=== PATIENT | female | born 1975 | race Caucasian/White ===

== ENCOUNTER 2016-10-23 17:16 | Emergency (ER) | payer OTHER ==
[~2016-10-23] VITALS: Ht 165.1 cm; Wt 70.4 kg
[~2016-10-23 17:16] MED LIST: ALBUAER19 INH; CHLO1TAB19 PO; CLON1TAB3 PO; GABA1CAP5 PO; LEVO125T72 PO; NICO1KIT TOP; NXM/40 PO; PROM25TA9 PO; ROPI4TAB3 PO; SUMA20SP8 NAE; TRAZ150T64 PO
[2016-10-23 17:28] VITALS: TEMP 36.8; Ht 165.1 cm; Wt 70.4 kg
[2016-10-23] MEDS ORDERED: ROPI2TAB6 PO (18:57)
[2016-10-23] MEDS ORDERED: ZOLP10TA6 PO (18:58)
[2016-10-23] MEDS ORDERED: ONDANSETRON INJ 2 MG/ML 2 ML VIAL IV STA ×2 (19:11→20:57)
[2016-10-23] MEDS ORDERED: KETOROLAC TROMETHAMINE 30 MG/ML VIAL IV STA (19:11)
[2016-10-23] MEDS ORDERED: HYDROmorphone INJ 0.5 MG/0.5 ML SYR IV STA ×2 (19:11→20:57)
[2016-10-23] MEDS ORDERED: SODIUM CHLORIDE 0.9% 1000ML 1,000 ML IV STA (19:11)
[2016-10-23] MEDS ORDERED: AMOXICILLIN 500 MG CAP PO STA (19:11)
--- NOTE | 2016-10-23 19:14 | EMERGENCY ROOM VISIT NOTE ---
History Report prepared by Dave: Lefty Vazquez Under the Supervision of: Dr. Dinesh Garcia M.D. First contact with patient: 19:00 Chief Complaint: ILLNESS Stated Complaint: THROBBING EARS, STIFF NECK, NAUSEA, CANT PEE, MIGR History of Present Illness The patient is a 41 year old female who presents to the Emergency Room with complaints of persistent throbbing left ear pain for the past three weeks. The patient inserted a pin into the left ear in an attempt to relieve some pressure. There was no bleeding or discharge after she inserted the needle into her ear. The patient also complains of a headache, neck stiffness, nausea, and dizziness. The headache feels similar to past migraines. The patient does note that having a stiff neck is not a typical migraine symptom for her. She is also having trouble thinking clearly, which is unusual. The patient typically takes Tylenol PM and Motrin for her headaches. She hasn't followed up with neurology in a few years. The patient denies the possibility of . Her LNMP was at the end of the month. Source of History: patient Onset: three weeks Position: ear (left) Quality: other (throbbing) Timing: other (persistent) Associated Symptoms: + headache, + nausea, + neck pain Review of Systems See HPI for pertinent positives & negatives. A total of 10 systems reviewed and were otherwise negative. Past Medical & Surgical Medical Problems: (1) ACUTE CHOLECYSTITIS (2) ASTHMA, UNSPECIFIED (3) Benign hypertension (4) BIPOLAR DISORDER, UNSPECIFIED (5) Bronchitis (6) Cholecystectomy (7) Gastritis (8) GERD (gastroesophageal reflux disease) (9) Hypertension (10) Kidney stones (11) MIGRAINE UNSPECIFIED W/O INTRACT MGRN W/O STATUS MIGRAINOSUS (12) PERSONAL HISTORY OF URINARY CALCULI (13) Pneumonia Family History Diabetes mellitus FH: cancer FH: gallbladder disease FH: heart disease FH: kidney disease FH: lung disease Hypertension Kidney stone Social History Smoking Status: Current Every Day Smoker Alcohol Use: occasionally Drug Use: other Marital Status: Housing Status: lives with significant other Occupation Status: employed Current/Historical Medications Scheduled Amoxicillin (Amoxil), 500 MG PO TID Chlorpromazine Hcl (Thorazine), 25 MG PO HS Clonazepam (Klonopin), 2 MG PO HS Gabapentin (Neurontin), 800 MG PO QID Ranitidine Hcl (Zantac), 300 MG PO HS Ropinirole (Requip), 4 MG PO HS Trazodone Hcl (Desyrel), 300 MG PO HS Scheduled PRN Albuterol Inhaler (Ventolin Inhaler), 2 PUFFS INH QID PRN for SOB/Wheezing Promethazine Hcl (Phenergan), 25 MG PO Q6H PRN for Nausea or Vomiting Ropinirole (Requip), 2 MG PO DAILY PRN for PRN Sumatriptan (Imitrex), 1 SPRAY MIAH UD PRN for Headache Sumatriptan Succinate (Imitrex), 100 MG PO DAILY PRN for Headache Zolpidem Tartrate (Zolpidem Tartrate), 10 MG PO HS PRN for Sleep Allergies Coded Allergies: Metoclopramide (Unverified Allergy, Severe, suicidal thoughts, 10/23/16) Asenapine (Verified Allergy, Intermediate, FACIAL SWELLING, 10/23/16) Molds and Smuts (Verified Allergy, Mild, 10/23/16) Risperidone (Verified Adverse Reaction, Mild, FELT LIKE A ZOMBIE, 10/23/16) Diphenhydramine (Verified Adverse Reaction, Unknown, extremities "bounce" , 10/23/16) Uncoded Allergies: MOST ANTI-PSYCHOTIC MEDICATIONS (Adverse Reaction, Unknown, OTHER, 04/30/14) PATIENT STATES SHE CAN'T TAKE MOST BECAUSE SHE CAN'T BE IN THE SUN WITH THE MEDICATIONS AND SHE WORKS OUTSIDE. Physical Exam Vital Signs Date Time Temp Pulse Resp B/P Pulse Ox O2 Delivery O2 Flow Rate FiO2 10/23/16 21:03 62 10/23/16 21:01 68 20 109/61 94 Room Air 10/23/16 19:36 79 20 130/87 95 Room Air 10/23/16 17:28 36.8 116 18 139/85 97 Room Air Physical Exam GENERAL: Patient is a healthy-appearing well-nourished HEAD: Normocephalic atraumatic EYES: Ocular movements intact pupils equal and react to light EARS: Left TM is intact with no signs of puncture, there is a small abrasion on the inside of her ear canal, TM itself is injected. OROPHARYNX mucous membranes are moist no exudates present no erythema or edema present NECK: Supple no nuchal rigidity. No evidence of meningitis or encephalitis on exam. CHEST: Good equal expansion LUNGS: Clear and equal to auscultation CARDIAC: Normal S1 and S2 ABDOMEN: Soft nontender no guarding BACK: No CVA tenderness EXTREMITIES: No pain upon palpation normal muscle strength in all groups no clubbing cyanosis or edema NEURO: Patient is following commands is answering questions appropriately. Alert and oriented x3 Cranial Nerves 2-12 grossly intact Medical Decision & Procedures ER Provider Diagnostic Interpretation: X-ray results as stated below per my interpretation and radiologist interpretation. Other radiology results as stated below per my review and radiologist interpretation: CHEST ONE VIEW PORTABLE CLINICAL HISTORY: Headache COMPARISON STUDY: 02/09/2016 FINDINGS: The cardiac and mediastinal contours are normal. There is no evidence of focal pulmonary consolidation. There is no evidence of failure. No pleural effusions are visualized.[ IMPRESSION: No active disease in the chest. Electronically signed by: Onur Alicea M.D. 10/23/2016 7:38 PM Dictated Date/Time: 10/23/2016 7:[address] HEAD WITHOUT CONTRAST (CT) CLINICAL HISTORY: Severe headache COMPARISON STUDY: 03/04/2015 TECHNIQUE: Axial CT of the brain is performed from the vertex to the skull base. IV contrast was not administered for this examination. CT DOSE: 537.48 mGy.cm FINDINGS: No intra or extra-axial mass lesions are visualized. There is no CT evidence of acute cortical infarction. There is no evidence of midline shift. There is no acute hemorrhage. No calvarial fractures are visualized. There is no evidence of pathologic ventricular dilatation. There is no evidence of acute sinusitis IMPRESSION: Normal noncontrast head CT. Electronically signed by: Onur Alicea M.D. 10/23/2016 8:04 PM Dictated Date/Time: 10/23/2016 8:03 PM Laboratory Results 10/23/16 19:05 Red Blood Count 4.53, Mean Corpuscular Volume 83.0, Mean Corpuscular Hemoglobin 28.7, Mean Corpuscular Hemoglobin Concent 34.6, Mean Platelet Volume 9.0, Neutrophils (%) (Auto) 50.5, Lymphocytes (%) (Auto) 40.5, Monocytes (%) (Auto) 5.5, Eosinophils (%) (Auto) 2.9, Basophils (%) (Auto) 0.4, Neutrophils # (Auto) 4.48, Lymphocytes # (Auto) 3.60, Monocytes # (Auto) 0.49, Eosinophils # (Auto) 0.26, Basophils # (Auto) 0.04 10/23/16 19:05 Test 10/23/16 19:05 10/23/16 19:35 White Blood Count 8.89 K/uL (4.8-10.8) Red Blood Count 4.53 M/uL (4.2-5.4) Hemoglobin 13.0 g/dL (12.0-16.0) Hematocrit 37.6 % (37-47) Mean Corpuscular Volume 83.0 fL (80-100) Mean Corpuscular Hemoglobin 28.7 pg (25-34) Mean Corpuscular Hemoglobin Concent 34.6 g/dl (32-36) Platelet Count 278 K/uL (130-400) Mean Platelet Volume 9.0 fL (7.4-10.4) Neutrophils (%) (Auto) 50.5 % Lymphocytes (%) (Auto) 40.5 % Monocytes (%) (Auto) 5.5 % Eosinophils (%) (Auto) 2.9 % Basophils (%) (Auto) 0.4 % Neutrophils # (Auto) 4.48 K/uL (1.4-6.5) Lymphocytes # (Auto) 3.60 K/uL (1.2-3.4) Monocytes # (Auto) 0.49 K/uL (0.11-0.59) Eosinophils # (Auto) 0.26 K/uL (0-0.5) Basophils # (Auto) 0.04 K/uL (0-0.2) RDW Standard Deviation 43.8 fL (36.4-46.3) RDW Coefficient of Variation 14.5 % (11.5-14.5) Immature Granulocyte % (Auto) 0.2 % Immature Granulocyte # (Auto) 0.02 K/uL (0.00-0.02) Anion Gap 10.0 mmol/L (3-11) Est Creatinine Clear Calc Drug Dose 87.8 ml/min Estimated GFR () 101.5 Estimated GFR (Non- 87.6 BUN/Creatinine Ratio 15.1 (10-20) Calcium Level 8.4 mg/dl (8.5-10.1) Total Bilirubin 0.2 mg/dl (0.2-1) Direct Bilirubin < 0.1 mg/dl (0-0.2) Aspartate Amino Transf (AST/SGOT) 15 U/L (15-37) Alanine Aminotransferase (ALT/SGPT) 23 U/L (12-78) Alkaline Phosphatase 73 U/L (45-117) Total Protein 6.7 gm/dl (6.4-8.2) Albumin 3.5 gm/dl (3.4-5.0) Lipase 152 U/L (73-393) Influenza Type A Antigen Neg for Influ A (NEG) Influenza Type B Antigen Neg for Influ B (NEG) Labs reviewed by ED physician. Medications Administered Medications (Trade) Dose Ordered Sig/Karina Route Start Time Stop Time Status Last Admin Dose Admin Sodium Chloride (Nss 1000ml) 1,000 ml @ 999 mls/hr Q1H1M STAT IV 10/23/16 19:11 10/23/16 20:11 DC 10/23/16 19:29 999 MLS/HR Ketorolac Tromethamine (Toradol Inj) 30 mg NOW STAT IV 10/23/16 19:11 10/23/16 19:15 DC 10/23/16 19:30 30 MG Amoxicillin (Amoxil Cap) 500 mg NOW STAT PO 10/23/16 19:11 10/23/16 19:15 DC 10/23/16 19:30 500 MG Ondansetron HCl (Zofran Inj) 4 mg NOW STAT IV 10/23/16 19:11 10/23/16 19:15 DC 10/23/16 19:30 4 MG Hydromorphone HCl (Dilaudid Inj) 1 mg NOW STAT IV 10/23/16 19:11 10/23/16 19:15 DC 10/23/16 19:11 1 MG Hydromorphone HCl (Dilaudid Inj) 0.5 mg NOW STAT IV 10/23/16 20:57 10/23/16 20:59 DC 10/23/16 21:07 0.5 MG Dexamethasone Sodium Phosphate (Decadron Inj) 10 mg NOW ONCE IV 10/23/16 21:00 10/23/16 21:01 DC 10/23/16 21:07 10 MG Ondansetron HCl (Zofran Inj) 4 mg NOW STAT IV 10/23/16 20:57 10/23/16 20:59 DC 10/23/16 21:07 4 MG ED Course 1902: Past medical records reviewed. The patient was evaluated in room B2. A complete history and physical examination was performed. 1910: Dilaudid 1 mg IV, Zofran 4 mg Iv, Amoxicillin 500 mg PO, Toradol 30 mg IV , Sodium Chloride 1000 ml @ 999 mls/hr. 2056: Zofran 4 mg IV, Dilaudid 0.5 mg IV. 2099: Decadron 10 mg IV. 2104: Reassessed the patient. Discussed the findings with her. She verbalized understanding and agreement of the treatment plan. The patient is ready for discharge. Medical Decision Differential diagnosis: Etiologies such as migraine headache, meningitis, sinusitis, CO exposure, ICH, SAH, infection, tumor, headache, sinus thrombosis, arterial dissection, as well as others were entertained. the current condition. This is a 41-year-old female who presents emergency department complaining of a headache. The patient has no evidence of meningitis or encephalitis on examination. An IV was established, patient given normal saline bolus, Dilaudid , Zofran. The patient does not have an elevation in her white blood count has a normal renal profile have an normal liver profile. I believe that she is well enough to be discharged home for follow-up with neurology. I also recommended follow-up with your nose and throat as patient has had continuous issues with her left ear. She was placed on amoxicillin for this ear. Patient was in agreement with the treatment plan. Impression Primary Impression: Otitis media Additional Impression: Headache Scribe Attestation The scribe's documentation has been prepared under my direction and personally reviewed by me in its entirety. I confirm that the note above accurately reflects all work, treatment, procedures, and medical decision making performed by me. Departure Information Dispostion Home / Self-Care Prescriptions Amoxicillin (AMOXIL) 500 Mg Cap 500 MG PO TID for 10 Days, #30 CAP Prov: Dinesh Garcia MD 10/23/16 Referrals Anthony Light M.D. (PCP) Forms HOME CARE DOCUMENTATION FORM, IMPORTANT VISIT INFORMATION, WORK / SCHOOL INSTRUCTIONS Patient Instructions ED Otitis Media Abx Tx, My [facility] Additional Instructions Follow up with Dr Tapia's office for ear problem Follow up with DR Anderson's office for continued headaches You have been examined and treated today on an emergency basis only. This is not a substitute for, or an effort to provide, complete comprehensive medical care. It is impossible to recognize and treat all injuries or illnesses in a single emergency department visit. It is therefore important that you follow up closely with Dr Light. Call as soon as possible for an appointment. Thank you for your time and consideration. I look forward to speaking with you again soon. Please don't hesitate to call us if you have any questions. Problem Qualifiers Primary Impression: Otitis media Otitis media type: unspecified nonsuppurative Laterality: left Qualified Codes: H65.92 - Unspecified nonsuppurative otitis media, left ear Additional Impression: Headache Headache type: unspecified Headache chronicity pattern: acute headache Intractability: not intractable Qualified Codes: R51 - Headache
[2016-10-23 19:20] LABS: BASO % 0.4 %; BASO ABS # 0.04 K/uL (0-0.2); COMPLETE YES; EOS % 2.9 %; HEMATOCRIT 37.6 % (37-47); IG% 0.2 %; LYMPH % 40.5 %; MEAN CORPUSCULAR HEMOGLOBIN 28.7 pg (25-34); MEAN CORPUSCULAR HGB CONC 34.6 g/dl (32-36); MONO % 5.5 %; NEUT % 50.5 %; PLATELET COUNT 278 K/uL (130-400); RED BLOOD COUNT 4.53 M/uL (4.2-5.4); WHITE BLOOD COUNT 8.89 K/uL (4.8-10.8)
[2016-10-23] MEDS ORDERED: HYDROmorphone INJ 1 MG/ML SYR ONE (19:20)
[2016-10-23] MEDS ORDERED: AMOXICILLIN 250 MG CAP PO ONE (19:21)
--- NOTE | 2016-10-23 19:39 | DIAGNOSTIC IMAGING REPORT ---
CHEST ONE VIEW PORTABLE CLINICAL HISTORY: Headache COMPARISON STUDY: 02/09/2016 FINDINGS: The cardiac and mediastinal contours are normal. There is no evidence of focal pulmonary consolidation. There is no evidence of failure. No pleural effusions are visualized.[ IMPRESSION: No active disease in the chest. Electronically signed by: Onur Alicea M.D. 10/23/2016 7:38 PM Dictated Date/Time: 10/23/2016 7:38 PM
[2016-10-23 19:45] LABS: ALT/SGPT 23 U/L (12-78); BLOOD UREA NITROGEN 13 mg/dl (7-18); BUN/CREATININE RATIO 15.1 (10-20); CALCIUM 8.4 mg/dl (8.5-10.1); CARBON DIOXIDE 23 mmol/L (21-32); CHLORIDE 109 mmol/L (98-107); CREATININE 0.83 mg/dl (0.60-1.20); GLUCOSE 111 mg/dl (70-99); POTASSIUM 3.5 mmol/L (3.5-5.1); SODIUM 142 mmol/L (136-145)
[2016-10-23 19:48] LABS: ALKALINE PHOSPHATASE 73 U/L (45-117); AST/SGOT 15 U/L (15-37)
--- NOTE | 2016-10-23 20:05 | DIAGNOSTIC IMAGING REPORT ---
CT HEAD WITHOUT CONTRAST (CT) CLINICAL HISTORY: Severe headache COMPARISON STUDY: 03/04/2015 TECHNIQUE: Axial CT of the brain is performed from the vertex to the skull base. IV contrast was not administered for this examination. CT DOSE: 537.48 mGy.cm FINDINGS: No intra or extra-axial mass lesions are visualized. There is no CT evidence of acute cortical infarction. There is no evidence of midline shift. There is no acute hemorrhage. No calvarial fractures are visualized. There is no evidence of pathologic ventricular dilatation. There is no evidence of acute sinusitis IMPRESSION: Normal noncontrast head CT. Electronically signed by: Onur Alicea M.D. 10/23/2016 8:04 PM Dictated Date/Time: 10/23/2016 8:03 PM
[2016-10-23] MEDS ORDERED: DEXAMETHASONE SOD INJ 10 MG/ML VIAL IV ONE (21:00)
[2016-10-23 21:01] VITALS: BP 109/61; O2SAT 94
[2016-10-23 21:03] VITALS: PULSE 62
[2016-10-23] MEDS ORDERED: AMOX500C3 PO (21:03)
[2017-03-21] MEDS ORDERED: MELA1CAP9 PO (09:33)
[2017-03-21] MEDS ORDERED: DSY/150 PO (09:36)
[2017-03-21] MEDS ORDERED: VNTHFA/IN INH (09:36)
[2017-03-21] MEDS ORDERED: RANI300T2 PO (11:50)
== END 2016-10-23 21:24 | disposition home or self-care (01) ==
LOC: C.EDB 17:18
DX: H65.92 Unspecified nonsuppurative otitis media, left ear (principal); R51 Headache; J45.909 Unspecified asthma, uncomplicated; I10 Essential (primary) hypertension; F31.9 Bipolar disorder, unspecified; K21.9 Gastro-esophageal reflux disease without esophagitis; K29.70 Gastritis, unspecified, without bleeding; Z87.442 Personal history of urinary calculi; F17.210 Nicotine dependence, cigarettes, uncomplicated; Z79.899 Other long term (current) drug therapy

== ENCOUNTER 2017-02-04 08:33 | Emergency (ER) | payer OTHER ==
[~2017-02-04] VITALS: Ht 162.6 cm; Wt 80.6 kg
[~2017-02-04 08:33] MED LIST changes: -LEVO125T72 PO; -NICO1KIT TOP; -NXM/40 PO; +ROPI2TAB6 PO; +ZOLP10TA6 PO
[2017-02-04 08:38] VITALS: TEMP 36.9; Ht 162.6 cm; Wt 80.6 kg
[2017-02-04] MEDS ORDERED: ACETAMINOPHEN 500 MG TAB PO STA (09:03)
[2017-02-04] MEDS ORDERED: IBUPROFEN 600 MG TAB PO STA (09:03)
[2017-02-04] MEDS ORDERED: ONDANSETRON 4MG OD TAB PO STA (09:03)
[2017-02-04] MEDS ORDERED: BSP15 PO (09:33)
[2017-02-04 09:49] LABS: HEMATOCRIT 38.8 % (37-47); MEAN CELL VOLUME 86.6 fL (80-100); MEAN CORPUSCULAR HEMOGLOBIN 28.3 pg (25-34); MEAN CORPUSCULAR HGB CONC 32.7 g/dl (32-36); MEAN PLATELET VOLUME 9.1 fL (7.4-10.4); PLATELET COUNT 255 K/uL (130-400); RED BLOOD COUNT 4.48 M/uL (4.2-5.4); WHITE BLOOD COUNT 6.96 K/uL (4.8-10.8)
[2017-02-04 10:11] LABS: BUN/CREATININE RATIO 12.4 (10-20); CREATININE 0.8 mg/dl (0.60-1.20); POTASSIUM 3.7 mmol/L (3.5-5.1)
[2017-02-04 10:13] LABS: PREG INTERNAL NEGATIVE QC NEG CLEAR BACKGROUND; PREG INTERNAL POSITIVE QC POS CONTROL LINE
[2017-02-04 10:14] LABS: CALCIUM 8.5 mg/dl (8.5-10.1)
[2017-02-04 10:15] LABS: ACETAMINOPHEN < 2 ug/ml (10-30)
[2017-02-04 10:18] LABS: MANUAL MICROSCOPIC REQUIRED? NO; REVIEW REQ? NO; URINE APPEARANCE CLEAR (CLEAR); URINE BILIRUBIN NEG (NEG); URINE COLOR YELLOW; URINE NITRITE NEG (NEG); URINE PH 5.5 (4.5-7.5); URINE SPECIFIC GRAVITY 1.013 (1.000-1.030); UROBILINOGEN NEG (NEG); ZZUR CULT IF INDIC CLEAN CATCH NO
[2017-02-04 10:21] LABS: ALB/GLOB RATIO 1.2 (0.9-2); THYROID STIMULATING HORMONE 3.69 uIu/ml (0.300-4.500)
[2017-02-04 10:54] LABS: BENZODIAZEPINE, URINE NEG (NEG); COCAINE,URINE NEG (NEG); PHENCYCLIDINE, URINE NEG (NEG)
--- NOTE | 2017-02-04 11:35 | EMERGENCY ROOM VISIT NOTE ---
History Report prepared by Dave: Shaniqua Talley Under the Supervision of: Dr. Brayan Li M.D. First contact with patient: 08:56 Chief Complaint: MENTAL HEALTH EVALUATION Stated Complaint: SUICIDAL THOUGHTS,DISASSOCIATION History of Present Illness The patient is a 41 year old female who presents to the Emergency Room with complaints of an episode of depression starting a few months ago. She states she has dissociative identity disorder. She states that she has seen her psychiatrist and her adult protective caseworker. She notes that she came to the ED because [facility] recommended she come here. She reports that she wants to come in for help. She reports that she does have suicidal thoughts, but no true plan. She states anytime she thinks about committing suicide that she can't because of her beliefs. The patient states that she doesn't remember cutting herself on her right hip and abdomen. She states that she is on medicine, but it doesn't seem to help or work anymore. She notes that she has migraines every day now. Her reports that she doesn't sleep well. The patient complains of joint swelling and pain. She notes that she was in the hospital a few years ago for her mental health. Source of History: patient Onset: few monts ago Position: other (global) Quality: other (global) Timing: other (episode) Note: The patient complains of joint swelling, joint pain, and migraines. Review of Systems See HPI for pertinent positives & negatives. A total of 10 systems reviewed and were otherwise negative. Past Medical & Surgical Medical Problems: (1) ACUTE CHOLECYSTITIS (2) ASTHMA, UNSPECIFIED (3) Benign hypertension (4) BIPOLAR DISORDER, UNSPECIFIED (5) Bronchitis (6) Cholecystectomy (7) Gastritis (8) GERD (gastroesophageal reflux disease) (9) Hypertension (10) Kidney stones (11) MIGRAINE UNSPECIFIED W/O INTRACT MGRN W/O STATUS MIGRAINOSUS (12) PERSONAL HISTORY OF URINARY CALCULI (13) Pneumonia Family History Diabetes mellitus FH: cancer FH: gallbladder disease FH: heart disease FH: kidney disease FH: lung disease Hypertension Kidney stone Social History Smoking Status: Current Every Day Smoker Alcohol Use: occasionally Drug Use: other Marital Status: Housing Status: lives with significant other Occupation Status: employed Current/Historical Medications Scheduled Buspirone HCl (Buspirone HCl), 15 MG PO BID Chlorpromazine Hcl (Thorazine), 25 MG PO HS Clonazepam (Klonopin), 2 MG PO HS Gabapentin (Neurontin), 800 MG PO QID Melatonin (Melatonin), 10 MG PO HS Ropinirole (Requip), 4 MG PO HS Trazodone HCl (Trazodone HCl), 300 MG PO HS Scheduled PRN Albuterol Hfa (Ventolin Hfa), 2-4 PUFFS INH QID PRN for SOB/Wheezing Promethazine Hcl (Phenergan), 25 MG PO Q6H PRN for Nausea or Vomiting Ranitidine Hcl (Zantac), 300 MG PO HS PRN for PRN Ropinirole (Requip), 2 MG PO DAILY PRN for PRN Sumatriptan (Imitrex), 1 SPRAY MIAH UD PRN for Headache Sumatriptan Succinate (Imitrex), 100 MG PO DAILY PRN for Headache Zolpidem Tartrate (Zolpidem Tartrate), 10 MG PO HS PRN for Sleep Allergies Coded Allergies: Metoclopramide (Unverified Allergy, Severe, suicidal thoughts, 10/23/16) Asenapine (Verified Allergy, Intermediate, FACIAL SWELLING, 10/23/16) Molds and Smuts (Verified Allergy, Mild, 10/23/16) Risperidone (Verified Adverse Reaction, Mild, FELT LIKE A ZOMBIE, 10/23/16) Diphenhydramine (Verified Adverse Reaction, Unknown, extremities "bounce" , 10/23/16) Uncoded Allergies: MOST ANTI-PSYCHOTIC MEDICATIONS (Adverse Reaction, Unknown, OTHER, 04/30/14) PATIENT STATES SHE CAN'T TAKE MOST BECAUSE SHE CAN'T BE IN THE SUN WITH THE MEDICATIONS AND SHE WORKS OUTSIDE. Physical Exam Vital Signs Date Time Temp Pulse Resp B/P Pulse Ox O2 Delivery O2 Flow Rate FiO2 02/04/17 14:00 84 18 112/63 97 Room Air 02/04/17 12:01 86 16 108/64 95 Room Air 02/04/17 10:39 92 18 124/85 98 Room Air 02/04/17 08:38 36.9 107 17 131/86 95 Room Air Physical Exam GENERAL: Patient is in no acute distress. HEENT: No acute trauma, normocephalic atraumatic, mucous membranes moist, no nasal congestion, no scleral icterus. NECK: No stridor, no adenopathy, no meningismus, trachea is midline. LUNGS: Clear to auscultation bilaterally, no wheeze, no rhonchi, breath sounds equal. HEART: Tachycardic with regular rhythm, no murmurs. ABDOMEN: Soft, nontender, bowel sounds positive, no hernias, no peritonitis. Superficial lacs/abrasions to the right low lateral abdomen--no cellulitis, no suturing required. EXTREMITIES: No cyanosis or edema, full range of motion of all the joints without pain or difficulty, no signs for acute trauma. NEUROLOGIC: Oriented x 3, no acute motor or sensory deficits, no focal weakness. SKIN: No rash, no jaundice, no diaphoresis. PSYCH: flat affect, cooperative, admits to suicidal ideation with no set plan, voluntary Medical Decision & Procedures Laboratory Results 02/04/17 09:25 02/04/17 09:25 Test 02/04/17 00:00 02/04/17 09:25 Urine Color YELLOW Urine Appearance CLEAR (CLEAR) Urine pH 5.5 (4.5-7.5) Urine Specific [place] 1.013 (1.000-1.030) Urine Protein NEG (NEG) Urine Glucose (UA) NEG (NEG) Urine Ketones NEG (NEG) Urine Occult Blood NEG (NEG) Urine Nitrite NEG (NEG) Urine Bilirubin NEG (NEG) Urine Urobilinogen NEG (NEG) Urine Leukocyte Esterase NEG (NEG) Urine Opiates Screen NEG (NEG) Urine Methadone, Qualitative NEG (NEG) Urine Barbiturates NEG (NEG) Urine Phencyclidine (PCP) Level NEG (NEG) Ur Amphetamine/Methamphetamine NEG (NEG) MDMA (Ecstasy) Screen POS (NEG) Urine Benzodiazepines Screen NEG (NEG) Urine Cocaine Metabolite NEG (NEG) Urine Marijuana (THC) NEG (NEG) Red Blood Count 4.48 M/uL (4.2-5.4) Mean Corpuscular Volume 86.6 fL (80-100) Mean Corpuscular Hemoglobin 28.3 pg (25-34) Mean Corpuscular Hemoglobin Concent 32.7 g/dl (32-36) RDW Standard Deviation 44.5 fL (36.4-46.3) RDW Coefficient of Variation 14.0 % (11.5-14.5) Mean Platelet Volume 9.1 fL (7.4-10.4) Anion Gap 6.0 mmol/L (3-11) Est Creatinine Clear Calc Drug Dose 95.1 ml/min Estimated GFR () 106.1 Estimated GFR (Non- 91.6 BUN/Creatinine Ratio 12.4 (10-20) Calcium Level 8.5 mg/dl (8.5-10.1) Total Bilirubin 0.2 mg/dl (0.2-1) Aspartate Amino Transf (AST/SGOT) 16 U/L (15-37) Alanine Aminotransferase (ALT/SGPT) 21 U/L (12-78) Alkaline Phosphatase 61 U/L (45-117) Total Protein 6.5 gm/dl (6.4-8.2) Albumin 3.6 gm/dl (3.4-5.0) Globulin 2.9 gm/dl (2.5-4.0) Albumin/Globulin Ratio 1.2 (0.9-2) Thyroid Stimulating Hormone (TSH) 3.690 uIu/ml (0.300-4.500) Human Chorionic Gonadotropin, Qual NEG (NEG) Salicylates Level 3.0 mg/dl (2.8-20) Acetaminophen Level < 2 ug/ml (10-30) Ethyl Alcohol mg/dL < 3.0 mg/dl (0-3) Laboratory results reviewed by me. Medications Administered Medications (Trade) Dose Ordered Sig/Karina Route Start Time Stop Time Status Last Admin Dose Admin Acetaminophen (Tylenol Tab) 1,000 mg NOW STAT PO 02/04/17 09:03 02/04/17 09:06 DC 02/04/17 09:33 1,000 MG Ibuprofen (Motrin Tab) 600 mg NOW STAT PO 02/04/17 09:03 02/04/17 09:06 DC 02/04/17 09:31 600 MG Ondansetron HCl (Zofran Odt) 4 mg NOW STAT PO 02/04/17 09:03 02/04/17 09:06 DC 02/04/17 09:33 4 MG Nicotine (Nicoderm Cq 21MG Patch) 1 patch NOW STAT EXT 02/04/17 11:51 02/04/17 11:52 DC 02/04/17 12:00 1 PATCH ED Course 0856: The patient was evaluated in room A7. A complete history and physical exam was performed. 0903: Ordered Zofran Odt 4 mg PO, Motrin Tab 600 mg PO, Tylenol Tab 1000 mg PO. 1150: The patient requested a nicotine patch. 1151: Ordered Nicotine 1 patch EXT. 1357: The adult protective caseworker called and informed me that the patient wants to go home now instead since a bed is not available in the facility of her choice. Case management spoke with the , spoke with the patient, and redid the suicide assessment. They decided that she is okay to go home and should return with any worsening thoughts or feelings. 1400: Reevaluated the patient. Discussed results and discharge instructions: She verbalized understanding and agreement. The patient is ready for discharge. Medical Decision Differential diagnoses include suicidal ideation, depression, anxiety, medication non compliance, thyroid disorder, drug and alcohol abuse. There is no leukocytosis or concerning anemia. No significant electrolyte abnormality, kidney failure or hepatitis. The patient appears to be in a euthyroid state. testing is negative. Urinalysis does not show infection. Urine tox showed possible ecstasy. Aspirin, Tylenol and alcohol levels were undetectable. The patient was felt medically clear for a psychiatric evaluation. She was seen by [facility] and our psychiatric dependency case manager. Referrals for a hospital stay were made however, the patient did not meet criteria for an inpatient stay. The patient decided that she wanted to go home. She agreed to a safety plan verbally. She scored very low as per the psychiatric adult protective caseworker on the suicide risk assessment. The patient's was comfortable with discharge home as was her dependency case manager. Patient was encouraged to return for worsening or escalating symptoms. She will follow with her adult protective caseworker and follow with her counselors as an outpatient. Impression Primary Impression: Suicidal ideation Scribe Attestation The scribe's documentation has been prepared under my direction and personally reviewed by me in its entirety. I confirm that the note above accurately reflects all work, treatment, procedures, and medical decision making performed by me. Departure Information Dispostion Home / Self-Care Referrals Anthony Light M.D. (PCP) Forms HOME CARE DOCUMENTATION FORM, IMPORTANT VISIT INFORMATION Patient Instructions My [facility] Additional Instructions meds as before follow as an outpt be sure to talk with your adult protective caseworker tomorrow return if feeling more suicidal or if your symptoms are worsening
[2017-02-04] MEDS ORDERED: NICOTINE 21 MG/24 HR TDSY EXT STA (11:51)
[2017-02-04 14:00] VITALS: BP 112/63; PULSE 84; O2SAT 97
[2017-03-21] MEDS ORDERED: MELA1CAP9 PO (09:33)
[2017-03-21] MEDS ORDERED: DSY/150 PO (09:36)
[2017-03-21] MEDS ORDERED: VNTHFA/IN INH (09:36)
[2017-03-21] MEDS ORDERED: RANI300T2 PO (11:50)
== END 2017-02-04 14:10 | disposition home or self-care (01) ==
LOC: C.EDB 08:35 → C.EDA 14:10
DX: R45.851 Suicidal ideations (principal); F32.9 Major depressive disorder, single episode, unspecified; F44.81 Dissociative identity disorder; I10 Essential (primary) hypertension; J45.909 Unspecified asthma, uncomplicated; K21.9 Gastro-esophageal reflux disease without esophagitis; Z79.899 Other long term (current) drug therapy; Z86.59 Personal history of other mental and behavioral disorders; Z87.09 Personal history of other diseases of the respiratory system; Z87.19 Personal history of other diseases of the digestive system; Z87.442 Personal history of urinary calculi; Z82.49 Family history of ischemic heart disease and other diseases of the circulatory system; Z83.3 Family history of diabetes mellitus; Z83.6 Family history of other diseases of the respiratory system; Z83.79 Family history of other diseases of the digestive system; Z84.1 Family history of disorders of kidney and ureter; F17.200 Nicotine dependence, unspecified, uncomplicated

== ENCOUNTER 2017-03-21 16:59 | Emergency (ER) | payer OTHER ==
[~2017-03-21] VITALS: Ht 165.1 cm; Wt 94.5 kg
[~2017-03-21 16:59] MED LIST changes: -ALBUAER19 INH; +BSP15 PO; +DSY/150 PO; +MELA1CAP9 PO; +RANI300T2 PO; -TRAZ150T64 PO; +VNTHFA/IN INH
[2017-03-21 17:13] VITALS: Ht 165.1 cm; Wt 94.5 kg
[2017-03-21] MEDS ORDERED: IBUPROFEN 600 MG TAB PO STA (17:25)
[2017-03-21] MEDS ORDERED: RQP/2 PO (18:02)
[2017-03-21] MEDS ORDERED: ROPI4TAB4 PO (18:02)
[2017-03-21] MEDS ORDERED: CLON2TAB3 PO (18:02)
[2017-03-21] MEDS ORDERED: ZYP15 PO (18:02)
[2017-03-21] MEDS ORDERED: NRN800 PO (18:02)
[2017-03-21] MEDS ORDERED: EFFSR150 PO (18:02)
[2017-03-21] MEDS ORDERED: PROM25TA16 PO (18:07)
[2017-03-21] MEDS ORDERED: IMT100 PO (18:58)
--- NOTE | 2017-03-21 19:13 | DIAGNOSTIC IMAGING REPORT ---
CT OF THE CERVICAL SPINE WITHOUT CONTRAST CLINICAL HISTORY: Fall, tenderness to palpation and pain of spine COMPARISON STUDY: Cervical spine CT May 12, 2014. TECHNIQUE: Helical axial images of the cervical spine were obtained without IV contrast. Sagittal and coronal reconstructions were viewed. FINDINGS: There is reversal of the normal cervical lordosis. Craniocervical junction is intact. There is no acute fracture. There is no prevertebral edema. Mild multilevel endplate osteophytosis is noted. IMPRESSION: No acute cervical spine fracture or subluxation. Electronically signed by: Ward Perea M.D. 03/21/2017 7:12 PM Dictated Date/Time: 03/21/2017 7:09 PM
[2017-03-21] MEDS ORDERED: OXYCODONE HCL IR 5 MG TAB (IMMEDIATE RELEASE) PO STA (19:42)
--- NOTE | 2017-03-21 19:42 | DIAGNOSTIC IMAGING REPORT ---
RIGHT ANKLE MIN 3 VIEWS ROUTINE CLINICAL HISTORY: Fall, pain from right foot to ankle. COMPARISON: None FINDINGS: There is moderate posterior calcaneal spurring. Irregularity of the medial malleolus is chronic. No acute fracture is identified. IMPRESSION: No acute fracture or dislocation of the right ankle. Electronically signed by: Ward Perea M.D. 03/21/2017 7:41 PM Dictated Date/Time: 03/21/2017 7:40 PM
--- NOTE | 2017-03-21 19:43 | DIAGNOSTIC IMAGING REPORT ---
PELVIS/BILATERAL HIP 2 VIEWS CLINICAL HISTORY: Fall, inferior spinous process pain and hip pain COMPARISON STUDY: Abdominal series February 09, 2016. FINDINGS: No acute fracture is identified within the pelvis or hips. Sacroiliac joints and symphysis pubis are intact. There is mild osteophytosis of both hips. IMPRESSION: No acute fracture within the pelvis or hips. Electronically signed by: Ward Perea M.D. 03/21/2017 7:42 PM Dictated Date/Time: 03/21/2017 7:41 PM
--- NOTE | 2017-03-21 19:44 | DIAGNOSTIC IMAGING REPORT ---
L-SPINE MIN 4 VIEWS ROUTINE CLINICAL HISTORY: Fall, inferior spinous process pain and hip pain COMPARISON: Lumbar spine radiographs June 08, 2011. FINDINGS: Alignment of the lumbar spine is anatomic. There is no acute fracture. Mild multilevel degenerative changes are present. There are cholecystectomy clips. IMPRESSION: No acute lumbar spine fracture. Electronically signed by: Ward Perea M.D. 03/21/2017 7:43 PM Dictated Date/Time: 03/21/2017 7:42 PM
--- NOTE | 2017-03-21 19:46 | DIAGNOSTIC IMAGING REPORT ---
RIGHT FOOT MIN 3 VIEWS ROUTINE CLINICAL HISTORY: Fall, pain from right foot to ankle. COMPARISON: Right fifth toe radiographs February 13, 2011. FINDINGS: The tarsometatarsal joints are intact. There is no acute fracture within the right foot. There is moderate posterior calcaneal spurring. IMPRESSION: No acute fracture or dislocation within the right foot. Electronically signed by: Ward Perea M.D. 03/21/2017 7:45 PM Dictated Date/Time: 03/21/2017 7:43 PM
--- NOTE | 2017-03-21 19:47 | DIAGNOSTIC IMAGING REPORT ---
RIGHT HUMERUS MIN 2 VIEWS ROUTINE CLINICAL HISTORY: Fall, pain from shoulder to hand. COMPARISON: None FINDINGS: No acute fracture of the right humerus is identified. Alignment of the right elbow is anatomic. There is no right elbow joint effusion. IMPRESSION: No acute fracture of the right humerus. Electronically signed by: Ward Perea M.D. 03/21/2017 7:46 PM Dictated Date/Time: 03/21/2017 7:45 PM
--- NOTE | 2017-03-21 19:49 | DIAGNOSTIC IMAGING REPORT ---
RIGHT FOREARM 2 VIEWS ROUTINE CLINICAL HISTORY: Fall, pain from shoulder to hand. COMPARISON: None FINDINGS: No acute fracture within the right radius or ulna is identified. Alignment of the right elbow is anatomic. IMPRESSION: No acute fracture of the right radius or ulna. Electronically signed by: Ward Perea M.D. 03/21/2017 7:47 PM Dictated Date/Time: 03/21/2017 7:46 PM
--- NOTE | 2017-03-21 19:50 | DIAGNOSTIC IMAGING REPORT ---
RIGHT HAND MIN 3 VIEWS ROUTINE CLINICAL HISTORY: Fall, pain from shoulder to hand. COMPARISON: Right hand radiographs March 21, 2015. FINDINGS: No acute fracture within the right hand is identified. Alignment is anatomic. Carpal bones appear intact. IMPRESSION: No acute fracture or dislocation of the right hand. Electronically signed by: Ward Perea M.D. 03/21/2017 7:48 PM Dictated Date/Time: 03/21/2017 7:47 PM
[2017-03-21 20:09] VITALS: TEMP 36.6
--- NOTE | 2017-03-21 20:17 | EMERGENCY ROOM VISIT NOTE ---
History First contact with patient: 17:17 Chief Complaint: ARM PAIN Stated Complaint: RT WRIST TO ELBOW INJURY, PAIN History of Present Illness The patient is a 41 year old female who presents to the Emergency Room via private vehicle with complaints of "right wrist elbow injury, pain". The patient states that this evening around 3 or 4 PM, she was getting out of her bed when her leg caught something, she turned around and fell striking the wall and the floor. She notes pain in the right foot, right ankle, right forearm, right upper extremity, bilateral hips, low back and neck. She rates her overall pain as a 7/10. She denies loss of consciousness, or striking her head. She denies chance of . Review of Systems A complete 10-point Review of Systems was discussed with the patient, with pertinent positives and negatives listed in the History of Present Illness. All remaining Review of Systems questions can be considered negative unless otherwise specified. Past Medical/Surgical History Medical Problems: (1) ACUTE CHOLECYSTITIS (2) ASTHMA, UNSPECIFIED (3) Benign hypertension (4) BIPOLAR DISORDER, UNSPECIFIED (5) Bronchitis (6) Cholecystectomy (7) Gastritis (8) GERD (gastroesophageal reflux disease) (9) Hypertension (10) Kidney stones (11) MIGRAINE UNSPECIFIED W/O INTRACT MGRN W/O STATUS MIGRAINOSUS (12) PERSONAL HISTORY OF URINARY CALCULI (13) Pneumonia Family History Diabetes mellitus FH: cancer FH: gallbladder disease FH: heart disease FH: kidney disease FH: lung disease Hypertension Kidney stone Social History Smoking Status: Current Every Day Smoker Alcohol Use: occasionally Drug Use: other Marital Status: Housing Status: lives with significant other Occupation Status: employed Current/Historical Medications Scheduled Clonazepam (Klonopin), 2 MG PO HS Gabapentin (Gabapentin), 800 MG PO QID Melatonin (Melatonin), 10 MG PO HS Olanzapine (Olanzapine), 15 MG PO HS Ranitidine Hcl (Zantac), 300 MG PO HS Ropinirole Hydrochloride (Requip), 4 MG PO HS Trazodone HCl (Trazodone HCl), 300 MG PO HS Venlafaxine Hcl (Effexor Extended Rel), 150 MG PO DAILY Scheduled PRN Albuterol Hfa (Ventolin Hfa), 2 PUFFS INH QID PRN for SOB/Wheezing Promethazine HCl (Promethazine HCl), 25 MG PO Q6H PRN for Nausea or Vomiting Ropinirole Hydrochloride (Requip), 2 MG PO DAILY PRN for Restless Legs Sumatriptan Succinate (Imitrex), 100 MG PO UD PRN for Migraine Zolpidem Tartrate (Zolpidem Tartrate), 5-10 MG PO HS PRN for Sleep Allergies Coded Allergies: Metoclopramide (Unverified Allergy, Severe, suicidal thoughts, 10/23/16) Asenapine (Verified Allergy, Intermediate, FACIAL SWELLING, 10/23/16) Molds and Smuts (Verified Allergy, Mild, 10/23/16) Risperidone (Verified Adverse Reaction, Mild, FELT LIKE A ZOMBIE, 10/23/16) Diphenhydramine (Verified Adverse Reaction, Unknown, extremities "bounce" , 10/23/16) Uncoded Allergies: MOST ANTI-PSYCHOTIC MEDICATIONS (Adverse Reaction, Unknown, OTHER, 04/30/14) PATIENT STATES SHE CAN'T TAKE MOST BECAUSE SHE CAN'T BE IN THE SUN WITH THE MEDICATIONS AND SHE WORKS OUTSIDE. Physical Exam Vital Signs Date Time Temp Pulse Resp B/P (MAP) Pulse Ox O2 Delivery O2 Flow Rate FiO2 03/21/17 20:27 71 16 130/76 99 03/21/17 20:09 36.6 03/21/17 17:13 37.7 98 18 136/86 95 Room Air Physical Exam VITAL SIGNS - Vital signs and nursing notes were reviewed. The patient is febrile at 37.7, hypertensive, non-tachycardic and saturating well on room air 95%. GENERAL -41-year-old female appearing her stated age who is in no acute distress. Communicates well with provider and answers questions appropriately. SKIN - Without rashes. There are no breaks in the integument. There is slight edema noted to the right forearm. HEAD - NC/AT. No hart signs or raccoons eyes. EYES - PERRL with EOMI bilaterally. Sclera anicteric. Palpebral conjunctiva pink and moist with no injection noted. EARS - No deformities of external structures noted on gross examination bilaterally. No pain elicited with palpation of the tragus bilaterally. External auditory canals without discharge or otorrhea. Tympanic membranes pearly alaniz without retraction or bulging. No fluid or purulent material visualized behind the TM. Handle of malleus, umbo, cone of light, pars tensa/ flaccid all easily visualized. No hemotympanum. NOSE - Midline and without cyanosis. No epistaxis or purulent drainage noted. Septum midline without deviation or septal hematoma noted. MOUTH/OROPHARYNX - Without perioral cyanosis. Buccal mucosa pink and moist and without leukoplakia. Tongue midline with equal elevation of palate bilaterally. No tonsillar hypertrophy, erythema, or exudates noted. Fair dentition noted. NECK - Neck with FROM. Supple to palpation. There is midline C-spine tenderness. LUNGS - Chest wall symmetric without accessory muscle use, intercostals retractions, or central cyanosis. Normal vesicular breath sounds CTA B/L. No wheezes, rales, or rhonchi appreciated. CARDIAC - RRR with S1/S2. No murmur, rubs, or gallops appreciated. EXTREMITIES - No clubbing or peripheral cyanosis. No pretibial edema present. There is tenderness to palpation overlying the right foot, right ankle, right hand, right forearm, right humerus region, C-spine, low back and bilateral hips. +5/5 strength noted in UE/LE bilaterally. NEUROLOGIC - Cranial nerves II through XII grossly intact. Sensory intact to light touch throughout. PSYCH - A&O Pt is very pleasant and interacts well with examiner. Medical Decision & Procedures ER Provider Diagnostic Interpretation: CT OF THE CERVICAL SPINE WITHOUT CONTRAST CLINICAL HISTORY: Fall, tenderness to palpation and pain of spine COMPARISON STUDY: Cervical spine CT May 12, 2014. TECHNIQUE: Helical axial images of the cervical spine were obtained without IV contrast. Sagittal and coronal reconstructions were viewed. FINDINGS: There is reversal of the normal cervical lordosis. Craniocervical junction is intact. There is no acute fracture. There is no prevertebral edema. Mild multilevel endplate osteophytosis is noted. IMPRESSION: No acute cervical spine fracture or subluxation. Electronically signed by: Ward Perea M.D. 03/21/2017 7:12 PM Dictated Date/Time: 03/21/2017 7:09 PM RIGHT ANKLE MIN 3 VIEWS ROUTINE CLINICAL HISTORY: Fall, pain from right foot to ankle. COMPARISON: None FINDINGS: There is moderate posterior calcaneal spurring. Irregularity of the medial malleolus is chronic. No acute fracture is identified. IMPRESSION: No acute fracture or dislocation of the right ankle. Electronically signed by: Ward Perea M.D. 03/21/2017 7:41 PM Dictated Date/Time: 03/21/2017 7:40 PM RIGHT FOOT MIN 3 VIEWS ROUTINE CLINICAL HISTORY: Fall, pain from right foot to ankle. COMPARISON: Right fifth toe radiographs February 13, 2011. FINDINGS: The tarsometatarsal joints are intact. There is no acute fracture within the right foot. There is moderate posterior calcaneal spurring. IMPRESSION: No acute fracture or dislocation within the right foot. Electronically signed by: Ward Perea M.D. 03/21/2017 7:45 PM Dictated Date/Time: 03/21/2017 7:43 PM RIGHT FOREARM 2 VIEWS ROUTINE CLINICAL HISTORY: Fall, pain from shoulder to hand. COMPARISON: None FINDINGS: No acute fracture within the right radius or ulna is identified. Alignment of the right elbow is anatomic. IMPRESSION: No acute fracture of the right radius or ulna. Electronically signed by: Ward Perea M.D. 03/21/2017 7:47 PM Dictated Date/Time: 03/21/2017 7:46 PM RIGHT HAND MIN 3 VIEWS ROUTINE CLINICAL HISTORY: Fall, pain from shoulder to hand. COMPARISON: Right hand radiographs March 21, 2015. FINDINGS: No acute fracture within the right hand is identified. Alignment is anatomic. Carpal bones appear intact. IMPRESSION: No acute fracture or dislocation of the right hand. Electronically signed by: Ward Perea M.D. 03/21/2017 7:48 PM Dictated Date/Time: 03/21/2017 7:47 PM PELVIS/BILATERAL HIP 2 VIEWS CLINICAL HISTORY: Fall, inferior spinous process pain and hip pain COMPARISON STUDY: Abdominal series February 09, 2016. FINDINGS: No acute fracture is identified within the pelvis or hips. Sacroiliac joints and symphysis pubis are intact. There is mild osteophytosis of both hips. IMPRESSION: No acute fracture within the pelvis or hips. Electronically signed by: Ward Perea M.D. 03/21/2017 7:42 PM Dictated Date/Time: 03/21/2017 7:41 PM RIGHT HUMERUS MIN 2 VIEWS ROUTINE CLINICAL HISTORY: Fall, pain from shoulder to hand. COMPARISON: None FINDINGS: No acute fracture of the right humerus is identified. Alignment of the right elbow is anatomic. There is no right elbow joint effusion. IMPRESSION: No acute fracture of the right humerus. Electronically signed by: Ward Perea M.D. 03/21/2017 7:46 PM Dictated Date/Time: 03/21/2017 7:45 PM L-SPINE MIN 4 VIEWS ROUTINE CLINICAL HISTORY: Fall, inferior spinous process pain and hip pain COMPARISON: Lumbar spine radiographs June 08, 2011. FINDINGS: Alignment of the lumbar spine is anatomic. There is no acute fracture. Mild multilevel degenerative changes are present. There are cholecystectomy clips. IMPRESSION: No acute lumbar spine fracture. Electronically signed by: Ward Perea M.D. 03/21/2017 7:43 PM Dictated Date/Time: 03/21/2017 7:42 PM Medications Administered Medications (Trade) Dose Ordered Sig/Karina Route Start Time Stop Time Status Last Admin Dose Admin Ibuprofen (Motrin Tab) 600 mg NOW STAT PO 03/21/17 17:25 03/21/17 17:29 DC 03/21/17 17:34 600 MG Oxycodone HCl (Roxicodone Immediate Rel Tab) 5 mg NOW STAT PO 03/21/17 19:42 03/21/17 19:44 DC 03/21/17 20:01 5 MG Medical Decision Patient was seen and evaluated as above. After obtaining a thorough history and physical examination the decision was made to obtain radiographs of the affected regions. The patient had numerous sites that she was tender to palpation on status post her fall. Results as above. No acute fracture. She was most tender overlying the right wrist therefore will be splinted with a Velcro wrist lacer. She was given oxycodone immediate release for her pain with near complete resolution of her symptoms. Her vital signs are significant for that of being febrile at 37.7, this was repeated and she was found to be afebrile. She is nontoxic in appearance. She requests no pain medication for home. I believe she is stable for outpatient management of which she may follow -up with her family doctor. She was educated upon worrisome symptoms which to return, had questions prior to discharge, and was discharged home in good condition. In evaluation treatment this patient following differential diagnoses were entertained: Fracture of multiple sites, contusion, among others. Impression Primary Impression: Fall Additional Impression: Multiple contusions Departure Information Dispostion Home / Self-Care Condition GOOD Referrals Anthony Light M.D. (PCP) Yusuf Frazier D.O. Patient Instructions [facility] Additional Instructions You have been treated in the Emergency Department for Wrist Pain, neck pain, back pain, arm and ankle pain following your fall. You have received pain medicine in the emergency department which impairs your ability to operate a vehicle. It is illegal for you to drive after receiving these medicines. For pain control, you can use the following [id number] medicines (if >12 yo): - Regular strength (325mg/tab) Tylenol (acetaminophen) 2 tabs every 4-6 hours as needed. Do not exceed 12 tablets in a 24 hour period. Avoid taking more than 3 grams (3000 mg) of Tylenol per day. This includes any other sources of acetaminophen you may take on a regular basis. - Regular strength (200 mg/tab) Advil (ibuprofen) 1-2 tabs every 4-6 hours as needed. Do not exceed a dose of 3200 mg per day. If this is a recent injury (<24 hrs), ice can be applied to the area of pain for the first 3 days to help decrease pain and inflammation. You have been provided the number for an Orthopaedic Surgeon. You should call this number as soon as possible to establish a follow-up visit from today's Emergency Department visit. Keep the brace/splint in place until evaluated by Orthopedics. Return to the Emergency Department if your current symptoms worsen despite treatment course outlined above, or if you develop any of the following symptoms : intractable pain despite aforementioned treatment course or new onset of numbness or tingling of the fingers. Please return to the emergency department with any new/concerning symptoms Problem Qualifiers
[2017-03-21 20:27] VITALS: BP 130/76; PULSE 71; O2SAT 99
--- NOTE | 2017-03-22 01:26 | EMERGENCY ROOM VISIT NOTE ---
ED Visit Note First contact with patient: 17:17 I have personally evaluated and examined this patient. I agree with assessment and plan of Wade Mcbride PA-C.
== END 2017-03-21 20:28 | disposition home or self-care (01) ==
LOC: C.EDB 17:00 → C.EDD 20:28
DX: T14.8 Other injury of unspecified body region (principal); W06.XXXA Fall from bed, initial encounter; Y92.013 Bedroom of single-family (private) house as the place of occurrence of the external cause; J45.909 Unspecified asthma, uncomplicated; I10 Essential (primary) hypertension; F31.9 Bipolar disorder, unspecified; K21.9 Gastro-esophageal reflux disease without esophagitis; Z87.442 Personal history of urinary calculi; G43.909 Migraine, unspecified, not intractable, without status migrainosus; Z87.01 Personal history of pneumonia (recurrent); Z83.3 Family history of diabetes mellitus; Z80.9 Family history of malignant neoplasm, unspecified; Z83.79 Family history of other diseases of the digestive system; Z84.1 Family history of disorders of kidney and ureter; Z83.6 Family history of other diseases of the respiratory system; F17.210 Nicotine dependence, cigarettes, uncomplicated; Z79.899 Other long term (current) drug therapy

== ENCOUNTER 2017-09-13 12:30 | Emergency (ER) | payer OTHER ==
[~2017-09-13] VITALS: Ht 165.1 cm; Wt 104.3 kg
[~2017-09-13 12:30] MED LIST changes: -BSP15 PO; -CHLO1TAB19 PO; -CLON1TAB3 PO; +CLON2TAB9 PO; +EFFSR150 PO; -GABA1CAP5 PO; +IMT100 PO; +NRN800 PO; +PROM25TA16 PO; -PROM25TA9 PO; -ROPI2TAB6 PO; -ROPI4TAB3 PO; +ROPI4TAB4 PO; +RQP/2 PO; -SUMA20SP8 NAE; +ZYP15 PO
[2017-09-13 12:38] VITALS: TEMP 36.6; Ht 165.1 cm; Wt 104.3 kg
[2017-09-13] MEDS ORDERED: HYDR-3126 PO (13:09)
[2017-09-13] MEDS ORDERED: ATR25 PO (13:09)
[2017-09-13] MEDS ORDERED: ZLF/100 PO (13:09)
[2017-09-13] MEDS ORDERED: THR25X PO (13:09)
[2017-09-13] MEDS ORDERED: CHOL4POW4 PO (13:09)
--- NOTE | 2017-09-13 13:43 | DIAGNOSTIC IMAGING REPORT ---
LEFT ANKLE 3 VIEWS HISTORY: left ankle pain/swelling s/p fall COMPARISON: None. FINDINGS: There is no fracture or dislocation. Mild soft tissue swelling. Small posterior and plantar calcaneal spurs. IMPRESSION: No fractures. Electronically signed by: Aniket Anguiano M.D. 09/13/2017 1:41 PM Dictated Date/Time: 09/13/2017 1:41 PM
--- NOTE | 2017-09-13 14:00 | EMERGENCY ROOM VISIT NOTE ---
ED Visit Note First contact with patient: 12:54 CHIEF COMPLAINT: Left Ankle pain and swelling HISTORY OF PRESENT ILLNESS: This 42-year-old female patient presents to the emergency department 2 days after sustaining an injury to the left ankle and foot with a twisting, inversion motion when she fell out of bed. The patient complains of pain and swelling along the outside of the ankle, just posterior to the lateral malleolus. The patient denies any pain of the foot. The patient rates the pain as sharp and 9/10. The patient is able to bear weight on the foot. Constant pain, worse with movement, weight bearing, and the dependent position. No knee pain, the patient is able to move their toes. No numbness or weakness of the foot, no laceration. The patient has not had a previous fracture to this ankle, but states she did have a surgery, but is uncertain why. The patient has taken ibuprofen for the pain, which is helpful. The patient denies any other injury. REVIEW OF SYSTEMS: A 6 system review of systems was completed with positives and pertinent negatives listed in the HPI. ALLERGIES: Benadryl, Reglan, risperidone, asenapine, MEDICATIONS: Albuterol, chlorpromazine, cholestyramine, Klonopin, gabapentin, hydroxyzine, melatonin, olanzapine, promethazine, Zantac, Requip, Zoloft, Imitrex, trazodone, Ambien PMH: Chronic joint problems SOCIAL HISTORY: The patient lives locally with family. She denies drug, alcohol use. She admits to smoking one half pack of cigarettes per day. PHYSICAL EXAM: Vital Signs: Reviewed Nurse's notes, vital signs stable. GENERAL : This is a 42-year-old obese white female, no acute distress, but appears in pain, well-developed, well-nourished. MENTAL STATUS: Alert, oriented to person place and time, and cooperative. MUSCULOSKELETAL: The left ankle is mildly swollen and tender over the lateral malleolus, but the skin is intact and there is no ligamentous instability. There is no fifth metatarsal tenderness. There is no tenderness over the rest of the foot. There is no calf or tibia/fibular tenderness. There is no visual deformity. The foot and toes are warm and well- perfused. Dorsalis pedis pulse 2+. Sensation to pain and light touch is intact. Capillary refill less than 2 seconds. RADIOLOGY: LEFT ANKLE 3 VIEWS HISTORY: left ankle pain/swelling s/p fall COMPARISON: None. FINDINGS: There is no fracture or dislocation. Mild soft tissue swelling. Small posterior and plantar calcaneal spurs. IMPRESSION: No fractures. Electronically signed by: Aniket Anguiano M.D. 09/13/2017 1:41 PM Dictated Date/Time: 09/13/2017 1:41 PM EMERGENCY DEPARTMENT COURSE: I examined the patient. She presents today complaining of left ankle pain and swelling. 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 X-rays of the left ankle were reviewed by myself and read by radiology and reveal no acute fracture or dislocation. An Bentley wrap was applied to the ankle under my direction and the position was satisfactory. Neurovascular status was rechecked and intact. The patient was instructed on the use of crutches. The patient was discharged home in good condition. DIFFERENTIAL DIAGNOSIS: Fracture, dislocation, contusion, sprain, strain, malignancy, and others DIAGNOSIS: Left ankle sprain Problem List Medical Problems: (1) ACUTE CHOLECYSTITIS Status: Resolved (2) ASTHMA, UNSPECIFIED Status: Chronic (3) Benign hypertension Status: Chronic (4) BIPOLAR DISORDER, UNSPECIFIED Status: Chronic (5) Bronchitis Status: Chronic (6) Cholecystectomy Status: Resolved (7) Gastritis Status: Chronic (8) GERD (gastroesophageal reflux disease) Status: Chronic (9) Hypertension Status: Chronic (10) Kidney stones Status: Chronic (11) MIGRAINE UNSPECIFIED W/O INTRACT MGRN W/O STATUS MIGRAINOSUS Status: Chronic (12) PERSONAL HISTORY OF URINARY CALCULI Status: Resolved (13) Pneumonia Status: Chronic Current/Historical Medications Scheduled Chlorpromazine HCl (Chlorpromazine HCl), 1 TAB PO TID Cholestyramine (Cholestyramine), 4 GM PO BID Clonazepam (Klonopin), 2 MG PO HS Gabapentin (Gabapentin), 800 MG PO QID Hydroxyzine Hcl (Atarax), 1 TAB PO HS Melatonin (Melatonin), 10 MG PO HS Olanzapine (Olanzapine), 15 MG PO HS Ranitidine Hcl (Zantac), 300 MG PO HS Ropinirole Hydrochloride (Requip), 4 MG PO HS Sertraline HCl (Sertraline HCl), 2 TAB PO QAM Trazodone HCl (Trazodone HCl), 300 MG PO HS Scheduled PRN Albuterol Hfa (Ventolin Hfa), 2 PUFFS INH QID PRN for SOB/Wheezing Promethazine HCl (Promethazine HCl), 25 MG PO Q6H PRN for Nausea or Vomiting Ropinirole Hydrochloride (Requip), 2 MG PO DAILY PRN for Restless Legs Sumatriptan Succinate (Imitrex), 100 MG PO UD PRN for Migraine Zolpidem Tartrate (Zolpidem Tartrate), 5-10 MG PO HS PRN for Sleep Allergies Coded Allergies: Metoclopramide (Unverified Allergy, Severe, suicidal thoughts, 10/23/16) Asenapine (Verified Allergy, Intermediate, FACIAL SWELLING, 10/23/16) Molds and Smuts (Verified Allergy, Mild, 10/23/16) Risperidone (Verified Adverse Reaction, Mild, FELT LIKE A ZOMBIE, 10/23/16) Diphenhydramine (Verified Adverse Reaction, Unknown, extremities "bounce" , 10/23/16) Uncoded Allergies: MOST ANTI-PSYCHOTIC MEDICATIONS (Adverse Reaction, Unknown, OTHER, 04/30/14) PATIENT STATES SHE CAN'T TAKE MOST BECAUSE SHE CAN'T BE IN THE SUN WITH THE MEDICATIONS AND SHE WORKS OUTSIDE. Vital Signs Date Time Temp Pulse Resp B/P (MAP) Pulse Ox O2 Delivery O2 Flow Rate FiO2 09/13/17 14:24 81 16 131/79 97 09/13/17 12:38 36.6 96 18 139/90 94 Room Air Departure Information Impression Primary Impression: Left ankle sprain Dispostion Home / Self-Care Condition GOOD Referrals Anthony Light M.D. (PCP) [facility] Patient Instructions ED Sprain Ankle, [facility] Additional Instructions ORTHOPEDIC INSTRUCTIONS: Ibuprofen(Motrin, Advil) may be used for fever or pain. Use 600mg every six hours as needed. Take with food. Avoid using more than 2400mg in a 24 hour period. Do not use 2400mg per day for more than three consecutive days without physician direction. Prolonged inappropriate use can lead to stomach upset or ulcers. (AND/OR) Acetaminophen(Tylenol) may be used for fever or pain. Use 1000mg every six hours as needed. Avoid using more than 3000mg in a 24 hour period. Ice compresses for 20 minutes at a time four times daily for 2-3 days. Use the crutches as instructed. Avoid weight bearing until it becomes tolerable. Rest and elevate your injury. Use the BENTLEY wrap to apply compression to the injury and to help with swelling. You may return to dance if no symptoms/pain with walking in 1 week. Return to the ER immediately for any numbness, tingling, severe pain, extreme swelling in the extremity or as needed. Call [facility], [phone], if no improvement in 1 week, to arrange follow up for your injury. Follow-up with your primary care physician in 2 to 3 days for a recheck of your current condition. Problem Qualifiers Primary Impression: Left ankle sprain Encounter type: initial encounter Involved ligament of ankle: unspecified ligament Qualified Codes: S93.402A - Sprain of unspecified ligament of left ankle, initial encounter
[2017-09-13 14:24] VITALS: BP 131/79; PULSE 81; O2SAT 97
[2018-01-10] MEDS ORDERED: CLON0.5T9 PO (14:46)
== END 2017-09-13 14:20 | disposition home or self-care (01) ==
LOC: C.EDB 12:31 → C.EDD 14:20
DX: S93.402A Sprain of unspecified ligament of left ankle, initial encounter (principal); W06.XXXA Fall from bed, initial encounter; I10 Essential (primary) hypertension; F31.9 Bipolar disorder, unspecified; K21.0 Gastro-esophageal reflux disease with esophagitis; J45.909 Unspecified asthma, uncomplicated; F17.200 Nicotine dependence, unspecified, uncomplicated; Z87.442 Personal history of urinary calculi; Z90.49 Acquired absence of other specified parts of digestive tract; Z79.899 Other long term (current) drug therapy; Z88.8 Allergy status to other drugs, medicaments and biological substances

== ENCOUNTER 2017-09-18 23:37 | Emergency (ER) | payer OTHER ==
[~2017-09-18] VITALS: Ht 165.1 cm; Wt 106.0 kg
[~2017-09-18 23:37] MED LIST changes: +CHOL4POW4 PO; -EFFSR150 PO; +HYDR-3126 PO; +THR25X PO; +ZLF/100 PO
[2017-09-18 23:44] VITALS: TEMP 37.1; Ht 165.1 cm; Wt 106.0 kg
[2017-09-18] MEDS ORDERED: DEXAMETHASONE **PF** INJ 10 MG/ML VIAL IV ONE (23:45)
[2017-09-18] MEDS ORDERED: ALBUT/IPRATROP 3MG/0.5MG NEB 3 ML VIAL INH ONE (23:45)
--- NOTE | 2017-09-18 23:48 | EMERGENCY ROOM VISIT NOTE ---
History Report prepared by Dave: Markell Espinoza Under the Supervision of: Dr. Db Richardson M.D. First contact with patient: 23:40 Chief Complaint: SHORTNESS OF BREATH Stated Complaint: SHORT OF BREATH History of Present Illness The patient is a 42 year old female with a history of asthma who presents to the Emergency Room via EMS with complaints of worsening shortness of breath that started a couple days ago. She states that she has been coughing a lot as well, and has a stuffy nose. The patient adds that she thought she was going to pass out a couple times, and has been having some chest pain. She notes that she has been using her rescue inhaler, which was helping at first but is not helping anymore. The patient says that she has been around sick contacts recently. She denies any new abdominal pain. The patient smokes a half a pack of cigarettes per day. She notes no history of blood clots or family history of blood clots. The patient says it has been a year since her last asthma flare- up. She denies any recent long travels. She does not take any control. Source of History: patient Onset: A couple days ago Position: other (global - illness) Quality: other (history of asthma) Timing: worsening Associated Symptoms: + cough, + chest pain, No abdominal pain (no new) Note: Associated symptoms: Stuffy nose. Review of Systems See HPI for pertinent positives & negatives. A total of 10 systems reviewed and were otherwise negative. Past Medical & Surgical Medical Problems: (1) ACUTE CHOLECYSTITIS (2) ASTHMA, UNSPECIFIED (3) Benign hypertension (4) BIPOLAR DISORDER, UNSPECIFIED (5) Bronchitis (6) Cholecystectomy (7) Gastritis (8) GERD (gastroesophageal reflux disease) (9) Hypertension (10) Kidney stones (11) MIGRAINE UNSPECIFIED W/O INTRACT MGRN W/O STATUS MIGRAINOSUS (12) PERSONAL HISTORY OF URINARY CALCULI (13) Pneumonia Family History Diabetes mellitus FH: cancer FH: gallbladder disease FH: heart disease FH: kidney disease FH: lung disease Hypertension Kidney stone Social History Smoking Status: Current Every Day Smoker Alcohol Use: occasionally Drug Use: other Marital Status: Housing Status: lives with significant other Occupation Status: employed Current/Historical Medications Scheduled Azithromycin (Zithromax Z-Liam), 1 PKT PO UD Chlorpromazine Hcl (Thorazine), 25 MG PO TID Cholestyramine (Questran), 4 GM PO BID PRIOR TO MEALS Clonazepam (Klonopin), 2 MG PO HS Gabapentin (Gabapentin), 800 MG PO TID Hydroxyzine Hcl (Atarax), 50 MG PO HS Melatonin (Melatonin), 10 MG PO HS Methylprednisolone (Medrol Dosepak), 1 PKT PO UD Olanzapine (Zyprexa), 15 MG PO HS Ranitidine Hcl (Zantac), 300 MG PO HS Ropinirole (Requip), 2 MG PO QAM Ropinirole Hydrochloride (Requip), 4 MG PO HS Sertraline HCl (Sertraline HCl), 200 MG PO QAM Trazodone HCl (Trazodone HCl), 300 MG PO HS Scheduled PRN Albuterol Hfa (Ventolin Hfa), 2 PUFFS INH QID PRN for SOB/Wheezing Promethazine HCl (Promethazine HCl), 25 MG PO TID PRN for Nausea or Vomiting Sumatriptan Succinate (Imitrex), 100 MG PO UD PRN for Migraine Zolpidem Tartrate (Zolpidem Tartrate), 5-10 MG PO HS PRN for Sleep Allergies Coded Allergies: Metoclopramide (Verified Allergy, Severe, suicidal thoughts, 09/19/17) Asenapine (Verified Allergy, Intermediate, FACIAL SWELLING, 09/19/17) Molds and Smuts (Verified Allergy, Mild, 09/19/17) Risperidone (Verified Adverse Reaction, Mild, FELT LIKE A ZOMBIE, 09/19/17) Diphenhydramine (Verified Adverse Reaction, Unknown, extremities "bounce" , 09/19/17) Uncoded Allergies: MOST ANTI-PSYCHOTIC MEDICATIONS (Adverse Reaction, Unknown, OTHER, 04/30/14) PATIENT STATES SHE CAN'T TAKE MOST BECAUSE SHE CAN'T BE IN THE SUN WITH THE MEDICATIONS AND SHE WORKS OUTSIDE. Physical Exam Vital Signs Date Time Temp Pulse Resp B/P (MAP) Pulse Ox O2 Delivery O2 Flow Rate FiO2 09/19/17 01:31 163/87 09/19/17 01:27 119 16 97 09/19/17 01:12 118 15 99 09/19/17 01:01 147/95 09/19/17 00:57 120 16 99 09/19/17 00:42 114 18 98 09/19/17 00:40 107 16 94 Room Air 09/19/17 00:37 115 19 98 09/19/17 00:31 155/101 09/19/17 00:22 106 19 98 09/19/17 00:07 109 17 96 09/19/17 00:01 115/68 09/18/17 23:52 116 13 96 Room Air 09/18/17 23:44 166/92 09/18/17 23:44 37.1 115 17 166/92 95 Room Air Physical Exam GENERAL: Patient is well appearing and in minimal distress. HEENT: No acute trauma, normocephalic atraumatic, mucous membranes moist, no scleral icterus. Rhinorrhea bilaterally. NECK: No stridor, no adenopathy, no meningismus, trachea is midline. LUNGS: No dyspnea. Diffuse expiratory wheezing. No rhonchi. HEART: Tachycardic rate and regular rhythm. No murmurs, rubs, gallops appreciated. ABDOMEN: Soft, nontender, bowel sounds positive, no masses appreciated, no peritonitis. BACK: No midline tenderness, no CVA tenderness EXTREMITIES: Normal motion all extremities, no cyanosis, no edema. NEUROLOGIC: Alert and oriented, no acute motor or sensory deficits, no focal weakness, cranial nerves grossly intact. SKIN: No rash, no jaundice, no diaphoresis. Medical Decision & Procedures ER Provider Diagnostic Interpretation: X ray results are stated below per my interpretation: Chest: 1 view: No infiltrate, no effusion, normal cardiac border. Laboratory Results 09/19/17 00:05 Red Blood Count 4.64, Mean Corpuscular Volume 90.7, Mean Corpuscular Hemoglobin 31.5, Mean Corpuscular Hemoglobin Concent 34.7, Mean Platelet Volume 8.5, Neutrophils (%) (Auto) 61.4, Lymphocytes (%) (Auto) 27.4, Monocytes (%) (Auto) 6.7, Eosinophils (%) (Auto) 3.7, Basophils (%) (Auto) 0.5, Neutrophils # (Auto) 3.68, Lymphocytes # (Auto) 1.64, Monocytes # (Auto) 0.40, Eosinophils # (Auto) 0.22, Basophils # (Auto) 0.03 09/19/17 00:05 Test 09/19/17 00:05 White Blood Count 5.99 K/uL (4.8-10.8) Red Blood Count 4.64 M/uL (4.2-5.4) Hemoglobin 14.6 g/dL (12.0-16.0) Hematocrit 42.1 % (37-47) Mean Corpuscular Volume 90.7 fL (80-100) Mean Corpuscular Hemoglobin 31.5 pg (25-34) Mean Corpuscular Hemoglobin Concent 34.7 g/dl (32-36) Platelet Count 215 K/uL (130-400) Mean Platelet Volume 8.5 fL (7.4-10.4) Neutrophils (%) (Auto) 61.4 % Lymphocytes (%) (Auto) 27.4 % Monocytes (%) (Auto) 6.7 % Eosinophils (%) (Auto) 3.7 % Basophils (%) (Auto) 0.5 % Neutrophils # (Auto) 3.68 K/uL (1.4-6.5) Lymphocytes # (Auto) 1.64 K/uL (1.2-3.4) Monocytes # (Auto) 0.40 K/uL (0.11-0.59) Eosinophils # (Auto) 0.22 K/uL (0-0.5) Basophils # (Auto) 0.03 K/uL (0-0.2) RDW Standard Deviation 43.8 fL (36.4-46.3) RDW Coefficient of Variation 13.2 % (11.5-14.5) Immature Granulocyte % (Auto) 0.3 % Immature Granulocyte # (Auto) 0.02 K/uL (0.00-0.02) D-Dimer 310 ug/L FEU (0-500) Anion Gap 3.0 mmol/L (3-11) Est Creatinine Clear Calc Drug Dose 105.5 ml/min Estimated GFR () 99.4 Estimated GFR (Non- 85.7 BUN/Creatinine Ratio 17.7 (10-20) Calcium Level 8.3 mg/dl (8.5-10.1) Troponin I < 0.015 ng/ml (0-0.045) Influenza Type A Antigen Neg for Influ A (NEG) Influenza Type B Antigen Neg for Influ B (NEG) Laboratory results as reviewed by me. Medications Administered Medications (Trade) Dose Ordered Sig/Karina Route Start Time Stop Time Status Last Admin Dose Admin Albuterol/ Ipratropium (Duoneb) 12 ml ONE ONCE INH 09/18/17 23:45 09/18/17 23:46 DC 09/18/17 23:45 12 ML Dexamethasone Sodium Phosphate (Dexamethasone Inj Pf) 10 mg NOW ONCE IV 09/18/17 23:45 09/18/17 23:47 DC 09/19/17 00:08 10 MG Oxymetazoline HCl (Afrin 0.05% Nasal [place]) 1 sprays NOW ONCE NA 09/19/17 00:45 09/19/17 00:46 DC 09/19/17 00:47 1 SPRAYS Azithromycin (Zithromax Tab) 500 mg NOW ONCE PO 09/19/17 01:15 09/19/17 01:16 DC 09/19/17 01:33 500 MG Albuterol (Ventolin Hfa Inhaler) 2 puffs NOW ONCE INH 09/19/17 01:15 09/19/17 01:16 DC 09/19/17 01:33 2 PUFFS ECG Indication: SOB/dyspnea Rate (beats per minute): 107 Rhythm: sinus tachycardia Findings: no acute ischemic change, no ectopy ED Course 2341: The patient was evaluated in room B11B. A complete history and physical exam was performed. 2345: Ordered Duoneb 12 ml INH. 0114: I reevaluated the patient and she is feeling better. She is mildly tachycardic. She is comfortable with the plan to treat her bronchitis at home. She notes previous improvement with Z-packs and steroids. The patient expressed understanding and agreement with the treatment plan. She is discharged. Medical Decision Differential: Infectious, Reactive Airway Disease, Pneumonia, Pneumothorax, ACS , Pulmonary Embolism, MSK, GI, Dissection, amongst other etiologies entertained. 42 yr old female arrives for evaluation of shortness of breath. Mild expiratory wheezing on evaluation. Admits asthma, smoking history and history of bronchitis about 1 year ago. Improved with neb. Steroids and will ad on abx given her history. CXR clear, labs look good, no evidence PE, and she is stable. Mild tachy consistent with disease but I do not feel it represents sepsis nor PE at this time. Given HFA inhaler as unknown if her's at home is still good. Reviewed symptoms requiring RTED. Medication Reconcilliation Current Medication List: was personally reviewed by me Blood Pressure Screening Patient's blood pressure: Normal blood pressure Impression Primary Impression: Acute bronchitis Scribe Attestation The scribe's documentation has been prepared under my direction and personally reviewed by me in its entirety. I confirm that the note above accurately reflects all work, treatment, procedures, and medical decision making performed by me. Departure Information Dispostion Home / Self-Care Prescriptions Azithromycin (ZITHROMAX Z-LIAM) 250 Mg Tab 1 PKT PO UD, #1 PKT Prov: Db Richardson M.D. 09/19/17 Methylprednisolone (MEDROL DOSEPAK) 4 Mg Liam 1 PKT PO UD for 6 Days, #1 PKT Prov: Db Richardson M.D. 09/19/17 Referrals Anthony Light M.D. (PCP) Patient Instructions Bronchitis Acute, My [facility] Problem Qualifiers Primary Impression: Acute bronchitis
[2017-09-19 00:13] LABS: BASO % 0.5 %; BASO ABS # 0.03 K/uL (0-0.2); EOS % 3.7 %; EOS ABS # 0.22 K/uL (0-0.5); HEMATOCRIT 42.1 % (37-47); HEMOGLOBIN 14.6 g/dL (12.0-16.0); IG# 0.02 K/uL (0.00-0.02); LYMPH % 27.4 %; LYMPH ABS # 1.64 K/uL (1.2-3.4); MEAN CELL VOLUME 90.7 fL (80-100); MEAN CORPUSCULAR HEMOGLOBIN 31.5 pg (25-34); MEAN CORPUSCULAR HGB CONC 34.7 g/dl (32-36); MEAN PLATELET VOLUME 8.5 fL (7.4-10.4); MONO % 6.7 %; NEUT % 61.4 %; NEUT ABS # 3.68 K/uL (1.4-6.5); PLATELET COUNT 215 K/uL (130-400); RED CELL DISTRIBUTION WIDTH CV 13.2 % (11.5-14.5); RED CELL DISTRIBUTION WIDTH SD 43.8 fL (36.4-46.3); WHITE BLOOD COUNT 5.99 K/uL (4.8-10.8)
[2017-09-19] MEDS ORDERED: CHLO1TAB19 PO (00:22)
[2017-09-19] MEDS ORDERED: ROPI2TAB6 PO (00:22)
[2017-09-19] MEDS ORDERED: OLAN1TAB15 PO (00:22)
[2017-09-19] MEDS ORDERED: CHOL4POW11 PO (00:22)
[2017-09-19] MEDS ORDERED: HYDR-3126 PO (00:25)
[2017-09-19 00:31] LABS: BLOOD UREA NITROGEN 15 mg/dl (7-18); CALCIUM 8.3 mg/dl (8.5-10.1); CARBON DIOXIDE 28 mmol/L (21-32); CREATININE 0.84 mg/dl (0.60-1.20); GLUCOSE 96 mg/dl (70-99); POTASSIUM 3.8 mmol/L (3.5-5.1); SODIUM 140 mmol/L (136-145)
[2017-09-19 00:39] LABS: INFLUENZA B ANTIGEN Neg for Influ B (NEG)
[2017-09-19 00:40] VITALS: PULSE 107; O2SAT 94
[2017-09-19] MEDS ORDERED: OXYMETAZOLINE HCL 0.05% NA SPR 15 ML BTL ONE (00:45)
[2017-09-19] MEDS ORDERED: AZITHROMYCIN 250 MG TAB PO ONE (01:15)
[2017-09-19] MEDS ORDERED: ALBUTEROL HFA 8 GM INHALER INH ONE (01:15)
[2017-09-19] MEDS ORDERED: AZITTAB PO (01:16)
[2017-09-19] MEDS ORDERED: METH4PAK PO (01:16)
[2017-09-19 01:27] VITALS: PULSE 119; O2SAT 97
[2017-09-19 01:31] VITALS: BP 163/87
--- NOTE | 2017-09-19 06:45 | DIAGNOSTIC IMAGING REPORT ---
CHEST ONE VIEW PORTABLE CLINICAL HISTORY: Atypical chest pain COMPARISON STUDY: October 23, 2016 FINDINGS: The cardiac and mediastinal contours are normal. There is no evidence of focal pulmonary consolidation. There is no evidence of failure. No pleural effusions are visualized.[ IMPRESSION: No active disease in the chest. Electronically signed by: Onur Alicea M.D. 09/19/2017 6:44 AM Dictated Date/Time: 09/19/2017 6:43 AM
[2018-01-10] MEDS ORDERED: CLON0.5T9 PO (14:46)
== END 2017-09-19 01:35 | disposition home or self-care (01) ==
LOC: EDBD 23:37 → C.EDB 23:38
DX: J20.9 Acute bronchitis, unspecified (principal); F17.210 Nicotine dependence, cigarettes, uncomplicated; J45.909 Unspecified asthma, uncomplicated; I10 Essential (primary) hypertension; K21.9 Gastro-esophageal reflux disease without esophagitis; F31.9 Bipolar disorder, unspecified; Z87.01 Personal history of pneumonia (recurrent); Z87.442 Personal history of urinary calculi; Z90.49 Acquired absence of other specified parts of digestive tract; Z83.3 Family history of diabetes mellitus; Z82.49 Family history of ischemic heart disease and other diseases of the circulatory system; Z84.1 Family history of disorders of kidney and ureter; Z79.899 Other long term (current) drug therapy

== ENCOUNTER 2017-11-05 21:29 | Emergency (ER) | payer OTHER ==
[~2017-11-05] VITALS: Ht 165.1 cm; Wt 109.0 kg
[~2017-11-05 21:29] MED LIST changes: +CHLO1TAB19 PO; +CHOL4POW11 PO; -CHOL4POW4 PO; +CLON2TAB3 PO; -CLON2TAB9 PO; +OLAN1TAB15 PO; +ROPI2TAB6 PO; -RQP/2 PO; -THR25X PO; -ZYP15 PO
[2017-11-05 21:34] VITALS: TEMP 36.6; Ht 165.1 cm; Wt 109.0 kg
[2017-11-05] MEDS ORDERED: PROCHLORPERAZINE 5 MG/ML 2 ML VIAL IV STA (21:37)
[2017-11-05] MEDS ORDERED: ALBUT/IPRATROP 3MG/0.5MG NEB 3 ML VIAL ONE (21:37)
[2017-11-05] MEDS ORDERED: KETOROLAC TROMETHAMINE 30 MG/ML VIAL IV STA (21:37)
[2017-11-05] MEDS ORDERED: SODIUM CHLORIDE 0.9% 1000ML 2,000 ML IV STA (21:37)
--- NOTE | 2017-11-05 21:42 | EMERGENCY ROOM VISIT NOTE ---
History Report prepared by Dave: Suma Marx Under the Supervision of: Dr. Faustino Deutsch M.D. First contact with patient: 21:31 Chief Complaint: SHORTNESS OF BREATH Stated Complaint: SOB History of Present Illness The patient is a 42 year old female who presents to the Emergency Room with complaints of persistent shortness of breath that began 4 hours ago. The patient states that she felt fine yesterday, but about 2 hours ago she began experiencing chest pain and migraines. She notes that she has a history of migraines. The patient reports that she has had diarrhea for about 2 days. She denies nausea, vomiting, fevers, or urinary symptoms. The patient states a history of asthma, noting she is normally not on oxygen. Patient is currently on Thorazine. Source of History: patient Onset: 4 hours ago Position: other (respiratory) Quality: other (shortness of breath) Timing: other (persistent) Associated Symptoms: + chest pain Note: Associated symptoms include: migraine Review of Systems See HPI for pertinent positives and negatives. A total of ten systems were reviewed and were otherwise negative. Past Medical & Surgical Medical Problems: (1) ACUTE CHOLECYSTITIS (2) ASTHMA, UNSPECIFIED (3) Benign hypertension (4) BIPOLAR DISORDER, UNSPECIFIED (5) Bronchitis (6) Cholecystectomy (7) Gastritis (8) GERD (gastroesophageal reflux disease) (9) Hypertension (10) Kidney stones (11) MIGRAINE UNSPECIFIED W/O INTRACT MGRN W/O STATUS MIGRAINOSUS (12) PERSONAL HISTORY OF URINARY CALCULI (13) Pneumonia Family History Diabetes mellitus FH: cancer FH: gallbladder disease FH: heart disease FH: kidney disease FH: lung disease Hypertension Kidney stone Social History Smoking Status: Current Every Day Smoker Alcohol Use: occasionally Drug Use: other Marital Status: Housing Status: lives with significant other Occupation Status: employed Current/Historical Medications Scheduled Chlorpromazine Hcl (Thorazine), 25 MG PO TID Cholestyramine (Questran), 4 GM PO BID PRIOR TO MEALS Clonazepam (Klonopin), 2 MG PO HS Gabapentin (Gabapentin), 800 MG PO TID Hydroxyzine Hcl (Atarax), 50 MG PO HS Melatonin (Melatonin), 10 MG PO HS Olanzapine (Zyprexa), 15 MG PO HS Prednisone (Prednisone), 3 TAB PO DAILY Ranitidine Hcl (Zantac), 300 MG PO HS Ropinirole (Requip), 2 MG PO QAM Ropinirole Hydrochloride (Requip), 4 MG PO HS Sertraline HCl (Sertraline HCl), 200 MG PO QAM Trazodone HCl (Trazodone HCl), 300 MG PO HS Scheduled PRN Albuterol Hfa (Ventolin Hfa), 2 PUFFS INH QID PRN for SOB/Wheezing Promethazine HCl (Promethazine HCl), 25 MG PO TID PRN for Nausea or Vomiting Sumatriptan Succinate (Imitrex), 100 MG PO UD PRN for Migraine Zolpidem Tartrate (Zolpidem Tartrate), 5-10 MG PO HS PRN for Sleep Allergies Coded Allergies: Metoclopramide (Verified Allergy, Severe, suicidal thoughts, 09/19/17) Asenapine (Verified Allergy, Intermediate, FACIAL SWELLING, 09/19/17) Molds and Smuts (Verified Allergy, Mild, 09/19/17) Risperidone (Verified Adverse Reaction, Mild, FELT LIKE A ZOMBIE, 09/19/17) Diphenhydramine (Verified Adverse Reaction, Unknown, extremities "bounce" , 09/19/17) Uncoded Allergies: MOST ANTI-PSYCHOTIC MEDICATIONS (Adverse Reaction, Unknown, OTHER, 04/30/14) PATIENT STATES SHE CAN'T TAKE MOST BECAUSE SHE CAN'T BE IN THE SUN WITH THE MEDICATIONS AND SHE WORKS OUTSIDE. Physical Exam Vital Signs Date Time Temp Pulse Resp B/P (MAP) Pulse Ox O2 Delivery O2 Flow Rate FiO2 11/06/17 00:22 87 15 129/91 94 11/05/17 23:01 126/89 11/05/17 22:59 84 15 95 Room Air 11/05/17 22:29 87 18 94 11/05/17 22:23 136/88 11/05/17 22:19 136/88 11/05/17 22:01 /130 11/05/17 21:59 86 23 93 11/05/17 21:56 88 11/05/17 21:51 92 Room Air 11/05/17 21:36 149/101 11/05/17 21:34 36.6 83 18 149/101 92 Room Air Physical Exam GENERAL: Awake, alert, well-appearing, in no distress HENT: Dry mucous membranes. Normocephalic, atraumatic. Oropharynx unremarkable. EYES: Normal conjunctiva. Sclera non-icteric. NECK: Supple. No nuchal rigidity. FROM. No JVD. RESPIRATORY: Scant intermittent wheezes, otherwise clear lungs. CARDIAC: Regular rate, normal rhythm. Extremities warm and well perfused. Pulses equal. ABDOMEN: Soft, non-distended. No tenderness to palpation. No rebound or guarding. No masses. RECTAL: Deferred. MUSCULOSKELETAL: Chest examination reveals no tenderness. The back is symmetrical on inspection without obvious abnormality. There is no CVA tenderness to palpation. No joint edema. LOWER EXTREMITIES: Calves are equal size bilaterally and non-tender. No edema. No discoloration. NEURO: Normal sensorium. No sensory or motor deficits noted. SKIN: No rash or jaundice noted. Medical Decision & Procedures Laboratory Results 11/05/17 22:15 Red Blood Count 4.53, Mean Corpuscular Volume 89.4, Mean Corpuscular Hemoglobin 30.7, Mean Corpuscular Hemoglobin Concent 34.3, Mean Platelet Volume 8.8, Neutrophils (%) (Auto) 45.7, Lymphocytes (%) (Auto) 43.2, Monocytes (%) (Auto) 6.8, Eosinophils (%) (Auto) 3.7, Basophils (%) (Auto) 0.3, Neutrophils # (Auto) 3.93, Lymphocytes # (Auto) 3.72, Monocytes # (Auto) 0.59, Eosinophils # (Auto) 0.32, Basophils # (Auto) 0.03 11/05/17 22:15 Test 11/05/17 22:15 11/05/17 22:26 White Blood Count 8.62 K/uL (4.8-10.8) Red Blood Count 4.53 M/uL (4.2-5.4) Hemoglobin 13.9 g/dL (12.0-16.0) Hematocrit 40.5 % (37-47) Mean Corpuscular Volume 89.4 fL (80-100) Mean Corpuscular Hemoglobin 30.7 pg (25-34) Mean Corpuscular Hemoglobin Concent 34.3 g/dl (32-36) Platelet Count 244 K/uL (130-400) Mean Platelet Volume 8.8 fL (7.4-10.4) Neutrophils (%) (Auto) 45.7 % Lymphocytes (%) (Auto) 43.2 % Monocytes (%) (Auto) 6.8 % Eosinophils (%) (Auto) 3.7 % Basophils (%) (Auto) 0.3 % Neutrophils # (Auto) 3.93 K/uL (1.4-6.5) Lymphocytes # (Auto) 3.72 K/uL (1.2-3.4) Monocytes # (Auto) 0.59 K/uL (0.11-0.59) Eosinophils # (Auto) 0.32 K/uL (0-0.5) Basophils # (Auto) 0.03 K/uL (0-0.2) RDW Standard Deviation 41.3 fL (36.4-46.3) RDW Coefficient of Variation 12.8 % (11.5-14.5) Immature Granulocyte % (Auto) 0.3 % Immature Granulocyte # (Auto) 0.03 K/uL (0.00-0.02) Anion Gap 8.0 mmol/L (3-11) Est Creatinine Clear Calc Drug Dose 112.5 ml/min Estimated GFR () 105.4 Estimated GFR (Non- 90.9 BUN/Creatinine Ratio 22.1 (10-20) Calcium Level 8.8 mg/dl (8.5-10.1) Total Bilirubin 0.2 mg/dl (0.2-1) Direct Bilirubin < 0.1 mg/dl (0-0.2) Aspartate Amino Transf (AST/SGOT) 16 U/L (15-37) Alanine Aminotransferase (ALT/SGPT) 23 U/L (12-78) Alkaline Phosphatase 82 U/L (45-117) Troponin I < 0.015 ng/ml (0-0.045) Total Protein 6.4 gm/dl (6.4-8.2) Albumin 3.3 gm/dl (3.4-5.0) Lipase 239 U/L (73-393) Influenza Type A (RT-PCR) Neg for Influ A (NEG) Influenza Type A Antigen Neg for Influ A (NEG) Influenza Type B Antigen Neg for Influ B (NEG) Influenza Type B (RT-PCR) Neg for Influ B (NEG) Medications Administered Medications (Trade) Dose Ordered Sig/Karina Route Start Time Stop Time Status Last Admin Dose Admin Sodium Chloride 2,000 ml @ 999 mls/hr Q2H1M STAT IV 11/05/17 21:37 11/05/17 23:37 DC 11/05/17 22:21 999 MLS/HR Ketorolac Tromethamine (Toradol Inj) 15 mg NOW STAT IV 11/05/17 21:37 11/05/17 21:42 DC 11/05/17 22:15 15 MG Dexamethasone Sodium Phosphate (Dexamethasone Inj Pf) 10 mg NOW ONCE IV 11/05/17 21:45 11/05/17 21:46 DC 11/05/17 22:16 10 MG Prochlorperazine Edisylate (Compazine Inj) 10 mg NOW STAT IV 11/05/17 21:37 11/05/17 21:42 DC 11/05/17 22:16 10 MG Haloperidol Lactate (Haldol Inj) 5 mg NOW STAT IV 11/05/17 23:24 11/05/17 23:25 DC 11/05/17 23:44 5 MG ECG Per My Interpretation Indication: chest pain Rate (beats per minute): 83 Rhythm: normal sinus Findings: no acute ischemic change, other (Normal axis) Change: no significant change (07/15/2015) ED Course 2132: The patient was evaluated in room C6. A complete history and physical exam was performed. Medical Decision I reviewed the patient's past medical history, medications, and the nursing notes as described above. Differential diagnosis: Etiologies such as infections, reactive airway disease, pneumonia, pneumothorax , COPD, CHF, cardiac ischemia, pulmonary embolism, musculoskeletal, gastrointestinal, as well as others were entertained. The patient is a 42-year-old woman with a past medical history of asthma, mood disorder on Thorazine, migraines, substance abuse who presents emergency Department with the complaint of shortness of breath and migraine that has been ongoing since today per hpi. Of note the patient had a similar emergency department visit in September. On arrival the patient is in no acute distress, afebrile stable vital signs. Oxygen saturation is normal on room air. On exam the patient has scant intermittent wheezes, otherwise clear lungs. Labs unremarkable cleaning WBC and troponin within normal limits the setting of symptoms greater than 6 hours. EKG unremarkable. CXR negative for PNA. He was ordered for IV fluids, compazine, and dexamethasone for asthma and migraine, as well as hour of continuous neb. When patient was reassessed patient reported that she still felt short of breath however I became aware that the patient had declined her entire neb because she said that the single neb she received in the ambulance did not help. She also reported that her CAMPOS was the same. I explained to the patient that we would not provide narcotics for chronic migraine HAs. I explained that narcotics are an effective pain medication for acute severe pain such as from a bone fracture or after surgery, however, they are not recommended for chronic pain such as for headaches or back pain as they have the potential to promote rebound hyperalgesia resulting in increased severity of the initial chronic pain when not taking narcotics. Patient was agreeable with this and we agree to try Haldol, given that she reports an "allergy to reglan where she gets suicidal ideation". I further explained to the patient that given her history of asthma her shortness of breath is likely due to a viral illness and she is likely to have some mild bronchoconstriction with mucous production that likely explains her dyspnea. Subsequently the patient was agreeable for neb and Haldol was ordered. 5 minutes later the patient told the nurse that she preferred to deferred her nebulizer and additional medication and was requesting discharge. Given that the patient is in NAD with reassuring w/u without hypoxia, discharge with prednisone RX and outpatient f/u is appropriate. Findings and plan for follow-up reviewed with patient. Patient agreeable and d/c'd per discharge instructions. Medication Reconcilliation Current Medication List: was personally reviewed by me Impression Primary Impression: Upper respiratory infection Additional Impression: Asthma exacerbation Scribe Attestation The scribe's documentation has been prepared under my direction and personally reviewed by me in its entirety. I confirm that the note above accurately reflects all work, treatment, procedures, and medical decision making performed by me. Departure Information Dispostion Home / Self-Care Prescriptions Prednisone (Prednisone) 20 Mg Tab 3 TAB PO DAILY for 4 Days, #12 TAB FOR 4 DAYS Prov: Faustino Deutsch M.D. 11/06/17 Referrals Anthony Light M.D. (PCP) Forms HOME CARE DOCUMENTATION FORM, IMPORTANT VISIT INFORMATION Patient Instructions Asthma, ED Bronchitis Asthmatic, ED Headache Migraine, ED Upper Resp Infec No Abx Tx, My [facility] Additional Instructions Please follow up with your primary care physician in the next 1-3 days for re- evaluation. You likely have a viral respiratory infection, which likely provoked your asthma and migraine. Otherwise, your exam, EKG, chest xray, and lab results did not show signs of an emergent condition at this time. Acetaminophen or ibuprofen for pain and fevers as needed. Prednisone as directed. Use your albuterol inhaler 2 puffs every 4 hours for the next 48 hours and then as needed thereafter. Drink plenty of fluids to ensure hydration. Return to the emergency department for worsening symptoms as described in the accompanying instructions. Problem Qualifiers
[2017-11-05] MEDS ORDERED: ALBUT/IPRATROP 3MG/0.5MG NEB 3 ML VIAL INH ONE (21:45)
[2017-11-05] MEDS ORDERED: DEXAMETHASONE **PF** INJ 10 MG/ML VIAL IV ONE (21:45)
[2017-11-05 21:51] VITALS: O2SAT 92
--- NOTE | 2017-11-05 21:58 | DIAGNOSTIC IMAGING REPORT ---
CHEST ONE VIEW PORTABLE CLINICAL HISTORY: CHEST PAIN dyspnea COMPARISON STUDY: 09/18/2017 FINDINGS: Poor inspiratory volumes creating some crowding of the basilar lung markings. No focal infiltrate. Diaphragms are smooth. No significant cardiac enlargement. IMPRESSION: No acute process The above report was generated using voice recognition software. It may contain grammatical, syntax or spelling errors. Electronically signed by: Miguel More M.D. 11/05/2017 9:57 PM Dictated Date/Time: 11/05/2017 9:56 PM
[2017-11-05 22:39] LABS: BASO % 0.3 %; BASO ABS # 0.03 K/uL (0-0.2); EOS % 3.7 %; EOS ABS # 0.32 K/uL (0-0.5); HEMATOCRIT 40.5 % (37-47); HEMOGLOBIN 13.9 g/dL (12.0-16.0); IG# 0.03 K/uL (0.00-0.02); LYMPH % 43.2 %; LYMPH ABS # 3.72 K/uL (1.2-3.4); MEAN CELL VOLUME 89.4 fL (80-100); MEAN CORPUSCULAR HEMOGLOBIN 30.7 pg (25-34); MEAN CORPUSCULAR HGB CONC 34.3 g/dl (32-36); MEAN PLATELET VOLUME 8.8 fL (7.4-10.4); MONO % 6.8 %; MONO ABS # 0.59 K/uL (0.11-0.59); NEUT % 45.7 %; NEUT ABS # 3.93 K/uL (1.4-6.5); PLATELET COUNT 244 K/uL (130-400); RED CELL DISTRIBUTION WIDTH CV 12.8 % (11.5-14.5); RED CELL DISTRIBUTION WIDTH SD 41.3 fL (36.4-46.3); WHITE BLOOD COUNT 8.62 K/uL (4.8-10.8)
[2017-11-05 22:46] LABS: ALBUMIN 3.3 gm/dl (3.4-5.0); ALT/SGPT 23 U/L (12-78); BLOOD UREA NITROGEN 18 mg/dl (7-18); CALCIUM 8.8 mg/dl (8.5-10.1); CARBON DIOXIDE 28 mmol/L (21-32); GLUCOSE 107 mg/dl (70-99); LIPASE 239 U/L (73-393); POTASSIUM 3.6 mmol/L (3.5-5.1); SODIUM 142 mmol/L (136-145)
[2017-11-05 22:50] LABS: INFLUENZA B ANTIGEN Neg for Influ B (NEG)
[2017-11-05 22:52] LABS: ALKALINE PHOSPHATASE 82 U/L (45-117); AST/SGOT 16 U/L (15-37); TOTAL PROTEIN 6.4 gm/dl (6.4-8.2)
[2017-11-05] MEDS ORDERED: HALOPERIDOL LACTATE 5 MG/ML 1 ML VIAL IV STA (23:24)
[2017-11-06] MEDS ORDERED: PRED20TA PO (00:08)
[2017-11-06 00:22] VITALS: BP 129/91; PULSE 87; O2SAT 94
[2017-11-06 02:14] LABS: INFLUENZA A PCR Neg for Influ A (NEG); INFLUENZA B PCR Neg for Influ B (NEG)
== END 2017-11-06 00:22 | disposition home or self-care (01) ==
LOC: EDBD 21:29 → C.EDC 21:31
DX: J06.9 Acute upper respiratory infection, unspecified (principal); J45.901 Unspecified asthma with (acute) exacerbation; I10 Essential (primary) hypertension; K21.9 Gastro-esophageal reflux disease without esophagitis; Z83.3 Family history of diabetes mellitus; Z82.49 Family history of ischemic heart disease and other diseases of the circulatory system; F17.200 Nicotine dependence, unspecified, uncomplicated; Z88.8 Allergy status to other drugs, medicaments and biological substances

== ENCOUNTER 2018-01-10 12:38 | Emergency (ER) | payer OTHER ==
[~2018-01-10] VITALS: Ht 165.1 cm; Wt 106.0 kg
[2018-01-10 12:40] VITALS: BP 137/91; PULSE 96; TEMP 36.7; O2SAT 96; Ht 165.1 cm; Wt 106.0 kg
--- NOTE | 2018-01-10 13:56 | DIAGNOSTIC IMAGING REPORT ---
L WRIST W/NAVICULAR MIN 3 VIEWS CLINICAL HISTORY: Left wrist pain status post trauma COMPARISON: None. DISCUSSION: No fractures or dislocations are visualized. There are mild osteoarthritic changes at the level the first carpal metacarpal joint. IMPRESSION: No fractures or dislocations identified. Electronically signed by: Onur Alicea M.D. 01/10/2018 1:55 PM Dictated Date/Time: 01/10/2018 1:54 PM
--- NOTE | 2018-01-10 14:00 | EMERGENCY ROOM VISIT NOTE ---
ED Visit Note First contact with patient: 12:44 CHIEF COMPLAINT: Hand/wrist injury HISTORY OF PRESENT ILLNESS: This 42-year-old female patient presents to the emergency department complaining of pain in the left hand and wrist after a fall approximately 1 month ago. Patient states that she has had x-rays done at her PCPs office 2 days ago, but she does not know the results of these. She was told that she may have a scaphoid fracture and was provided with a thumb spica splint, which she has been wearing. The patient is able to move their wrist. The patient states the pain is throbbing and 7/10. No laceration, no weakness. No numbness or tingling. The patient denies any other injury. The patient is able to move their fingers and elbow without difficulty. The patient has not had a previous fracture to this wrist. The patient has taken no medications today for the pain. Patient states that she wants to have x-rays done today, because she wants a second opinion about her hand/wrist injury. REVIEW OF SYSTEMS: A 6 system review of systems was performed with positives and pertinent negatives in the HPI. ALLERGIES: Reviewed on chart MEDICATIONS: Reviewed in chart PMH: Reviewed in chart SOCIAL HISTORY: Lives at home. Denies tobacco use. PHYSICAL EXAM: Vital Signs: Reviewed Nurse's notes, vital signs stable. GENERAL : Alert, pleasant and cooperative, in no acute distress, well-developed, well- nourished. NEURO: Alert and oriented to person place and time. Normal sensation to light and sharp touch. MUSCULOSKELETAL: There is no deformity of the left hand or wrist. There is mild tenderness of the distal wrist and hand at the base of the thumb. There is no edema. There is snuff box tenderness. Range of motion is normal. There is no tenderness of the elbow, hand or fingers. Oceanology Teacher strength 5/5. Radial pulse 2+. SKIN: Normal and intact. The hand is warm and well perfused with capillary refill less than 2 seconds. IMAGING: L WRIST W/NAVICULAR MIN 3 VIEWS CLINICAL HISTORY: Left wrist pain status post trauma COMPARISON: None. DISCUSSION: No fractures or dislocations are visualized. There are mild osteoarthritic changes at the level the first carpal metacarpal joint. IMPRESSION: No fractures or dislocations identified. ----- LEFT HAND 3 VIEWS CLINICAL HISTORY: Left hand injury. FINDINGS: 3 views of the left hand are compared to study dated 04/30/2014. A ring is present on the fourth finger. The skeletal structures are well mineralized. No fracture is seen. Chronic deformity and soft tissue calcification is seen involving the tuft of the fourth distal phalanx. Joint spaces of the hand are maintained. Soft tissue swelling is suggested in the tip of the fourth failure, similar to 2014 examination The overlying soft tissues are otherwise normal in appearance. IMPRESSION: 1. There is no radiographic evidence of acute fracture. 2. Chronic changes and swelling in the tip of the fourth finger as above. This has been present dating back to 2013 and clinical correlation will be required. EMERGENCY DEPARTMENT COURSE: I examined the patient. Patient was offered Tylenol or ibuprofen for pain, she declined this. She states she is simply here to have x-rays done. I did discuss with the patient since she has already had x-ray imaging done by her PCP, that her insurance may not cover additional x -rays today, as she does not have any acute injury. She verbalized understanding and still requested to have x-rays performed. X-rays of the left hand and wrist were reviewed by myself and radiologist and showed no evidence of acute fracture. Patient was updated on these results. She was encouraged to continue wearing her thumb spica Velcro splint. She was encouraged to follow -up with Dr. Steward, whom she has seen in the past. She was educated regarding follow-up and return precautions, she verbalized understanding. Patient was discharged home in stable condition and ambulatory. Problem List Medical Problems: (1) ACUTE CHOLECYSTITIS Status: Resolved (2) ASTHMA, UNSPECIFIED Status: Chronic (3) Benign hypertension Status: Chronic (4) BIPOLAR DISORDER, UNSPECIFIED Status: Chronic (5) Bronchitis Status: Chronic (6) Cholecystectomy Status: Resolved (7) Gastritis Status: Chronic (8) GERD (gastroesophageal reflux disease) Status: Chronic (9) Hypertension Status: Chronic (10) Kidney stones Status: Chronic (11) MIGRAINE UNSPECIFIED W/O INTRACT MGRN W/O STATUS MIGRAINOSUS Status: Chronic (12) PERSONAL HISTORY OF URINARY CALCULI Status: Resolved (13) Pneumonia Status: Chronic Current/Historical Medications Scheduled Azithromycin (Azithromycin), 250 MG PO DAILY Benzonatate (Benzonatate), 100 MG PO TID Clonazepam (Klonopin), 0.5 MG PO TID Duloxetine HCl (Duloxetine HCl), 40 MG PO DAILY Fluticasone Propionate (Fluticasone Propionate), 2 SPRAYS MIAH DAILY Gabapentin (Neurontin), 600 MG PO QID Hydroxyzine Hcl (Atarax), 50 MG PO TID Lurasidone HCl (Latuda), 60 MG PO DAILY Melatonin (Melatonin), 10 MG PO HS Meloxicam (Mobic), 7.5 MG PO DAILY Ranitidine Hcl (Zantac), 300 MG PO HS Ropinirole (Requip), 2 MG PO QAM Ropinirole Hydrochloride (Requip), 4 MG PO HS Sumatriptan Succinate (Imitrex), 25 MG PO PRN Trazodone HCl (Trazodone HCl), 150 MG PO HS Allergies Coded Allergies: Metoclopramide (Verified Allergy, Severe, suicidal thoughts, 01/10/18) Asenapine (Verified Allergy, Intermediate, FACIAL SWELLING, 01/10/18) Molds and Smuts (Verified Allergy, Mild, 01/10/18) Risperidone (Verified Adverse Reaction, Mild, FELT LIKE A ZOMBIE, 01/10/18) Diphenhydramine (Verified Adverse Reaction, Unknown, extremities "bounce" , 01/10/18) Uncoded Allergies: MOST ANTI-PSYCHOTIC MEDICATIONS (Adverse Reaction, Unknown, OTHER, 04/30/14) PATIENT STATES SHE CAN'T TAKE MOST BECAUSE SHE CAN'T BE IN THE SUN WITH THE MEDICATIONS AND SHE WORKS OUTSIDE. Vital Signs Date Time Temp Pulse Resp B/P (MAP) Pulse Ox O2 Delivery O2 Flow Rate FiO2 01/10/18 12:40 36.7 96 18 137/91 96 Room Air Departure Information Impression Primary Impression: Left hand pain Dispostion Home / Self-Care Condition GOOD Referrals Anthony Light M.D. (PCP) Raghu Steward MD Patient Instructions ED Fx Wrist Navicular Poss, ED Sprain Hand, My [facility] Additional Instructions DISCHARGE INSTRUCTIONS: You have been evaluated in the emergency department for your left hand/wrist injury. Continue to wear your wrist splint until the pain subsides. May alternate heat and ice to the injured area. Keep the wrist elevated as much as possible. Ibuprofen 600mg every 6 hours and/or Tylenol 1000 mg every 8 hours if needed for the pain. Follow up with your family doctor or orthopedic surgeon if your symptoms persist for more than a week. Work Instructions Return To Work: 1 day
[2018-01-10] MEDS ORDERED: MELO7.5T5 PO (14:46)
[2018-01-10] MEDS ORDERED: SUMA25TA PO (14:46)
[2018-01-10] MEDS ORDERED: LTD/40 PO (14:46)
[2018-01-10] MEDS ORDERED: AZIT-57 PO (14:46)
[2018-01-10] MEDS ORDERED: FLNIN/ NAE (14:46)
[2018-01-10] MEDS ORDERED: NRN/600 PO (14:46)
[2018-01-10] MEDS ORDERED: CYM20 PO (14:46)
[2018-01-10] MEDS ORDERED: CLON0.5T3 PO (14:46)
[2018-01-10] MEDS ORDERED: BENZ100C7 PO (14:46)
== END 2018-01-10 14:55 | disposition home or self-care (01) ==
LOC: C.EDB 12:39 → C.EDD 14:55
DX: M79.642 Pain in left hand (principal); W19.XXXA Unspecified fall, initial encounter; J45.909 Unspecified asthma, uncomplicated; I10 Essential (primary) hypertension; F31.9 Bipolar disorder, unspecified; K21.9 Gastro-esophageal reflux disease without esophagitis; Z87.01 Personal history of pneumonia (recurrent); Z87.442 Personal history of urinary calculi; Z90.49 Acquired absence of other specified parts of digestive tract; Z88.8 Allergy status to other drugs, medicaments and biological substances; Z88.6 Allergy status to analgesic agent; Z91.09 Other allergy status, other than to drugs and biological substances; Z79.899 Other long term (current) drug therapy

== ENCOUNTER 2019-03-03 12:25 | Inpatient (IN) ==
[2019-03-03 13:10] LABS: Appearance Urine Clear (Clear); Bilirubin Urine Negative (Negative); Blood Urine Negative (Negative); Color Urine Yellow; Glucose Urine UA Negative (Negative); Ketones Urine Negative (Negative); Leukocyte Esterase Urine Negative (Negative); Nitrite Urine Negative (Negative); Protein Urine Negative (Negative); Specific Gravity Urine 1.015 (1.000-1.030); Urobilinogen Urine Negative (Negative); pH Urine 6.5 (4.5-7.5)
[2019-03-03 13:33] LABS: Amphetamines+Metham, Urine Neg (Neg); Barbiturates, Urine Neg (Neg); Benzodiazepine, Urine Neg (Neg); Cocaine, Urine Neg (Neg); MDMA (Ecstacy), Urine Pos (Neg); Methadone, Urine Neg (Neg); Opiate, Urine Neg (Neg); Phencyclidine, Urine Neg (Neg)
[2019-03-03 13:51] LABS: Basophils # (auto) 0.04 K/uL (0-0.2); Basophils % (auto) 0.4 %; Eosinophils # (auto) 0.15 K/uL (0-0.5); Eosinophils % (auto) 1.6 %; Hematocrit (blood only) 40.3 % (37-47); Hemoglobin 13.4 g/dL (12.0-16.0); Immature Granulocytes # (auto) 0.04 K/uL (0.00-0.02); Immature Granulocytes % (auto) 0.4 %; Lymphocytes # (auto) 2.89 K/uL (1.2-3.4); Lymphocytes % (auto) 30.6 %; Mean Corpuscular Hgb Conc 33.3 g/dL (32-36); Mean Corpuscular Volume 85.9 fL (80-100); Mean Platelet Volume 8.9 fL (7.4-10.4); Monocytes # (auto) 0.63 K/uL (0.11-0.59); Monocytes % (auto) 6.7 %; Neutrophils # (auto) 5.68 K/uL (1.4-6.5); Neutrophils % (auto) 60.3 %; Platelet Count 268 K/uL (130-400); RDW Coefficient of Variation 14.1 % (11.5-14.5); RDW Standard Deviation 43.6 fL (36.4-46.3); Red Blood Count 4.69 M/uL (4.2-5.4); White Blood Count 9.43 K/uL (4.8-10.8)
[2019-03-03] MEDS ORDERED: GABAPENTIN 600 MG TAB PO STA (14:05)
[2019-03-03] MEDS ORDERED: clonazePAM 0.5 MG TAB PO STA (14:05)
[2019-03-03 14:08] LABS: Albumin Level 3.1 gm/dl (3.4-5.0); BUN Creatinine Ratio 16.3 (10-20); Calcium 8.6 mg/dl (8.5-10.1); Est GFR (African American) 94.6; Est GFR (Non-African American) 81.6; Potassium 3.8 mmol/L (3.5-5.1)
[2019-03-03 14:19] LABS: Albumin Globulin Ratio 0.9 (0.9-2); Bilirubin,Total 0.3 mg/dl (0.2-1); Globulin 3.3 gm/dl (2.5-4.0); Total Protein 6.4 gm/dl (6.4-8.2)
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
[2019-03-03] MEDS ORDERED: NICOTINE 14 MG/24 HR PATCH TD STA (17:04)
[2019-03-03] MEDS ORDERED: SODIUM CHLORIDE 0.65% NA SOLN 45 ML (OCEAN) PRN (17:22)
[2019-03-03] MEDS ORDERED: MAGNESIUM HYDROXIDE SUSP 30 ML UDC PO PRN (17:22)
[2019-03-03] MEDS ORDERED: ALUMINUM/MAGNESIUM SUSP 30 ML UDC PO PRN (17:22)
[2019-03-03] MEDS ORDERED: BISMUTH SUBSALICYLATE PER ML OMNICELL CHARGE PO PRN (17:22)
[2019-03-03] MEDS ORDERED: ACETAMINOPHEN 325 MG TAB PO PRN (17:22)
[2019-03-03] MEDS ORDERED: NICOTINE POLACRILEX 2 MG GUM MT PRN (17:27)
[2019-03-03] MEDS ORDERED: SIMETHICONE 80 MG CHEW PO PRN (17:31)
[2019-03-03] MEDS ORDERED: ALBUTEROL HFA 8 GM INHALER INH PRN (17:31)
[2019-03-03] MEDS ORDERED: SUMAtriptan succinate 100 MG TAB PO PRN (17:31)
[2019-03-03] MEDS ORDERED: PROMETHAZINE HCL 25 MG TAB PO PRN (17:31)
[2019-03-03] MEDS ORDERED: ROPINIROLE HCL 1 MG TABLET PO PRN (17:31)
[2019-03-03] MEDS: GABAPENTIN 800 MG TAB PO SCH (21:32)
[2019-03-03] MEDS: clonazePAM 0.5 MG TAB PO SCH (21:32)
[2019-03-03] MEDS: ESZOPICLONE 2 MG TABLET PO SCH (21:33)
[2019-03-03] MEDS: TRAZODONE HCL 100 MG TAB PO SCH (21:33)
[2019-03-03] MEDS: ROPINIROLE HCL 1 MG TABLET PO SCH (21:34)
[2019-03-03] MEDS: PRAZOSIN HCL 1 MG CAP PO SCH (21:34)
--- NOTE | 2019-03-04 08:30 | History & Physical ---
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 Inpatient Medications: Current Inpatient Medications Acetaminophen (Tylenol) 650 mg PO Q4H PRN PRN Reason: Headache or Minor Fever Stop: 04/02/19 17:21 Al Hydrox/Mg Hydrox/Simethicone (Maalox) 30 ml PO Q4H PRN PRN Reason: GI Upset Stop: 04/02/19 17:21 Albuterol (Ventolin Hfa) 2 puffs INH QID PRN PRN Reason: Shortness Of Breath Or Wheezing Stop: 04/02/19 17:30 Bismuth Subsalicylate (Kaopectate) 15 ml PO PRN PRN PRN Reason: Loose Stool Stop: 04/02/19 17:21 Celecoxib (Celebrex) 200 mg PO QAM [facility] Stop: 04/03/19 08:59 Clonazepam (Klonopin) 0.5 mg PO TID [facility] Stop: 04/02/19 20:59 Last Admin: 03/03/19 21:32 Dose: 0.5 mg Documented by: Duloxetine HCl (Cymbalta) 120 mg PO QAM [facility] Stop: 04/03/19 08:59 Eszopiclone (Lunesta) 2 mg PO HS [facility] Stop: 04/02/19 20:59 Last Admin: 03/03/19 21:33 Dose: 2 mg Documented by: Gabapentin (Neurontin) 800 mg PO TID [facility] Stop: 04/02/19 20:59 Last Admin: 03/03/19 21:32 Dose: 800 mg Documented by: Hydroxyzine HCl (Vistaril) 50 mg PO HSZ PRN PRN Reason: Insomnia Stop: 04/02/19 17:21 Hydroxyzine HCl (Vistaril) 50 mg PO TID [facility] Stop: 04/02/19 20:59 Last Admin: 03/03/19 21:33 Dose: 50 mg Documented by: Lurasidone HCl (Latuda) 80 mg PO QDD [facility] Stop: 04/03/19 16:29 Magnesium Hydroxide (Milk Of Magnesia) 30 ml PO DAILY PRN PRN Reason: Heartburn Stop: 04/02/19 17:21 Miscellaneous (Remove Nicoderm Patch) 1 ea N/A [facility] Stop: 04/02/19 20:59 Last Admin: 03/03/19 21:59 Dose: Not Given Documented by: Nicotine (Nicoderm Cq) 14 mg TD QAM [facility] Stop: 04/03/19 08:59 Nicotine Polacrilex (Nicorette 2mg) 1 piece MT UD PRN PRN Reason: Nicotine Withdrawal Stop: 04/02/19 17:26 Pantoprazole Sodium (Protonix) 40 mg PO QAM [facility] Stop: 04/03/19 08:59 Prazosin HCl (Prazosin Hcl) 5 mg PO [facility] Stop: 04/02/19 20:59 Last Admin: 03/03/19 21:34 Dose: 5 mg Documented by: Promethazine HCl (Phenergan) 25 mg PO TID PRN PRN Reason: Nausea And Vomiting Stop: 04/02/19 17:30 Ranitidine HCl (Zantac) 300 mg PO [facility] Stop: 04/02/19 20:59 Last Admin: 03/03/19 21:35 Dose: 300 mg Documented by: Ropinirole HCl (Requip) 2 mg PO QAM PRN PRN Reason: Restless Leg(S) Stop: 04/02/19 17:30 Ropinirole HCl (Requip) 4 mg PO HS [facility] Stop: 04/02/19 20:59 Last Admin: 03/03/19 21:34 Dose: 4 mg Documented by: Simethicone (Mylicon) 80 mg PO QID PRN PRN Reason: gas/bloating Stop: 04/02/19 17:30 Sodium Chloride ([place] Nasal) 1 - 2 sprays NA PRN PRN PRN Reason: Nasal Dryness/Congestion Stop: 04/02/19 17:21 Sumatriptan Succinate (Imitrex) 100 mg PO DAILY PRN PRN Reason: Migraine Headache Stop: 04/02/19 17:30 Trazodone HCl (Desyrel) 300 mg PO HS [facility] Stop: 04/02/19 20:59 Last Admin: 03/03/19 21:33 Dose: 300 mg Documented by: CPT Code CPT Code Initial Hospital Care: [id number]
[2019-03-04] MEDS: DULOXETINE HCL 60 MG CAP PO SCH (08:32)
[2019-03-04] MEDS: CeleBREX 200 MG CAP PO SCH (08:32)
[2019-03-04] MEDS: clonazePAM 0.5 MG TAB PO SCH ×3 (08:33→21:23)
[2019-03-04] MEDS: NICOTINE 14 MG/24 HR PATCH TD SCH (08:33)
[2019-03-04] MEDS: GABAPENTIN 800 MG TAB PO SCH ×3 (08:33→21:23)
[2019-03-04] MEDS: PANTOprazole 40 MG TAB PO SCH (08:34)
[2019-03-04] MEDS ORDERED: NICOTINE 14 MG/24 HR PATCH TD SCH (09:00)
[2019-03-04] MEDS ORDERED: HALOPERIDOL 5 MG TAB PO PRN (17:27)
[2019-03-04] MEDS ORDERED: HALOPERIDOL 5 MG TAB PO ONE (17:33)
[2019-03-04] MEDS: LURASIDONE HCL 40 MG TAB PO SCH (17:37)
[2019-03-04] MEDS: TRAZODONE HCL 100 MG TAB PO SCH (21:23)
[2019-03-04] MEDS: ROPINIROLE HCL 1 MG TABLET PO SCH (21:25)
[2019-03-04] MEDS: PRAZOSIN HCL 1 MG CAP PO SCH (21:25)
[2019-03-04] MEDS: ESZOPICLONE 2 MG TABLET PO SCH (22:05)
[2019-03-05 07:36] LABS: Glucose Fasting 98 mg/dl (70-99)
[2019-03-05 07:42] LABS: Chol HDL Ratio 3; Cholesterol 172 mg/dl (0-200); HDL Cholesterol 53 mg/dl; LDL Cholesterol Calculated 93 mg/dl; Triglycerides 129 mg/dl (0-150); VLDL Cholesterol 26 mg/dl
[2019-03-05] MEDS: DULOXETINE HCL 60 MG CAP PO SCH (09:28)
[2019-03-05] MEDS: PANTOprazole 40 MG TAB PO SCH (09:28)
[2019-03-05] MEDS: clonazePAM 0.5 MG TAB PO SCH ×3 (09:28→21:12)
[2019-03-05] MEDS: CeleBREX 200 MG CAP PO SCH (09:28)
[2019-03-05] MEDS: GABAPENTIN 800 MG TAB PO SCH ×3 (09:28→21:12)
[2019-03-05] MEDS: NICOTINE 14 MG/24 HR PATCH TD SCH (09:33)
--- NOTE | 2019-03-05 11:05 | Psychiatric Progress Note ---
Date of Service March 05, 2019 Impression / Recommendations Impression 43-year-old female admitted voluntarily for inpatient psychiatric admission, upon recommendation from her outpatient prescriber, Sophie Mazariegos PA-C. Patient had verbalized increased depressive symptoms, "hallucinations", and reported delusional belief about the presence of demons and that there were bugs crawling on her skin and through her bloodstream. Patient identifies several recent stressors that she feels have been building over the course of several months. Probably most significant of the stressors is the fact that her home health client has been placed on end-of-life care and was transferred to a group home, with patient admitting to difficulty understanding the aging process and . She continues to deny desire to harm herself or end her life. Discussion with outpatient psychiatric prescriber and therapist strengthens the understanding/ concerns that the patient's worsening of symptoms is related more closely to situational stressors as opposed to a true medication concern. Sophie offers for antidepressant medications to be adjusted, if warranted and suggests the patient's decline in mental health has mimicked the decline in her client's physical health and perhaps she is experiencing difficulty processing this loss, as her cared for patient is now receiving end-of-life care. It is unclear why her speeding ticket is so significant, but it has been reported at several of the patient's recent outpatient visits. Patient began reporting to her provider that "the demons put the bugs into my head" though there is no clear history of any psychosis or clearly delusional thought processes previously. It is unclear if medication adjustments are indicated, as it seems a portion of this admission is attributed to difficulty coping with recent life stressors. Recommendations are predominantly for supportive therapy and assistance with processing stressors. It is not clear that medications (aside from sleep aids) have provided a significant benefit at any point in the patient's treatment history. Patient will be encouraged to attend group therapy and other recreational programming during her admission. We will attempt to involve outpatient supports in a family meeting as well to discuss aftercare and discharge planning. At this time, patient is at increased risk of harm to self given her significant history of suicide attempts by overdose and frequent inpatient psychiatric admissions. Hospitalization is medically necessary due to worsening depressive symptoms, history of suicide attempts, recent situational stressors, and difficulty caring for herself in the outpatient setting. Dr. Marleny Wei was directly involved in review and discussion of the patient's case and participated in medical decision making regarding treatment recommendations. (1) PTSD (post-traumatic stress disorder): 03/04 - Admitted to a locked inpatient behavioral health unit, on q15 minute safety checks - Encourage medication initiation/adjustments as indicated - Encourage participation in group and recreational therapies - Gather collateral information from outpatient providers - Suggest family meeting to involve outpatient supports in safety planning - Continue current medication regimen until additional information can be gathered from outpatient providers. - Significant trauma history could certainly correlate with a complicated PTSD, as patient endorses significant flashbacks and nightmares leading to insomnia - Attempt to tease out symptoms of PTSD from patient self-reported diagnosis of dissociative identity disorder, which is not currently endorsed by outpatient providers - Assist patient with development of healthy and effective coping strategies, to manage stressors 03/05 - Significant trauma history could certainly correlate with a complicated PTSD, as patient endorses significant flashbacks and nightmares leading to insomnia - Continue q15 minute safety checks - Maintain current medication regimen without adjustment -already on the maximum FDA approved dose of Cymbalta, and the patient wants to avoid additional medications that increase risk of weight gain. PRN haloperidol was helpful and will continue. - Encourage participation in group and recreational therapies, including coloring and exercise via walking or stationary bike as patient has indicated these are therapeutic to her - Assist patient with development of healthy and effective coping strategies, to manage stressors - Family meeting with scheduled for this afternoon to engage outpatient supports in safety planning Present on Admission?: Yes (2) Depression: 03/04 - History of depression diagnosis per outpatient psychiatrist - endorsing worsening of symptoms. Will treat as depression NOS as further collateral will be necessary to tease out various diagnoses. Differential includes: major depressive disorder with/without psychotic features, mood disorder, psychosis/brief psychotic episode, and certainly other concerns - Continue current medication regimen unchanged, requested records from outpatient prescriber - Phone communication with outpatient prescriber results in hesitation for major medication adjustments, given complex history. Consider adjustment of antidepressive medications to target low mood and stress - Encourage development of healthy and effective coping strategies - Assist patient in processing loss, grief, and other subjects related to recent stressors 03/05 - Outpatient physician medical records assistant was contacted yesterday to review patient's care and treatment plan. - Will continue current medication regimen unchanged at present - Can consider titration of Cymbalta if warranted - Encourage development of healthy and effective coping strategies and assist patient in processing loss, grief, and other subjects related to recent stressors Present on Admission?: Yes (3) Borderline personality disorder: 03/05 -patient's trauma history and symptom pattern most consistent with BPD diagnosis, which is supported by her outpatient clinicians as well. She does not have a primary thought disorder, and current perceptual disturbances appear consistent with dissociation and paranoia characteristic of BPD. -Continue to provide support, consistent boundaries, and encourage use of healthy coping skills. Present on Admission?: Yes (4) Anxiety: 03/04 - Continue current medication regimen to target anxiety - Assist in development of healthy and effective coping strategies to express and process stressors Present on Admission?: Yes (5) Insomnia: 03/04 - Continue current sleep aids, outpatient psychiatric prescriber feeling this is most beneficial portion of her medication regimen Present on Admission?: Yes Inventory Assets Strengths: willingness for treatment, established with outpatient providers, long history with current providers Needs: Assistance coping with recent stressors, development of healthy and effective coping strategies Risk Factors Assessment Male: No : Yes Do You Have Access To A Gun?: No Health Problems: Yes Mental Health Diagnoses: Yes Substance Use Disorders: No Previous Attempt: Yes Previous Attempt; Highly Lethal: Yes Previous Psychiatric Hospitalization: Yes Hopelessness: No Smoker: Yes Protective Factors Assessment Rastafarian Beliefs: Yes : Yes Responsible for Young Children: No 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 Pt was admitted on 03/03/19 17:26 on a 201 voluntary commitment after referral from her outpatient psychiatric prescriber for delusions and worsening depressive symptoms. Information provided by the patient is considered to be reliable. Chief Complaint "I'm just so out of it". Review of Systems Sleep Information Total Hours of Sleep: 7.5 Sleep Comments: pt NPO during the night. pt on q-15 minute checks Meal Information Percent Meal Consumed - Breakfast: 75 Percent Meal Consumed - Lunch: 75 Percent Meal Consumed - Dinner: 100 Subjective Subjective Patient was seen & assessed and interval progress reviewed with the Treatment Team. The team notes patient was able to attend both group and self-awareness therapy yesterday, but rested in her room for the majority of the day otherwise. She required Haldol last night after expressing worsening hallucinations of demons strangling her, and was noted to be feeling somewhat better after administration. Discussion with patient today revealed ongoing endorsement of extreme fatigue and fogginess of the mind. She feels her thoughts are not working and she cannot concentrate or even recall details from even yesterday. She is unable to attribute fatigue to depression versus medication versus persistent nightmares interrupting sleep. She admits that she feels she has been decompensating at home over several weeks, with worsening depression, long-standing "bizarre dreams," and sleep issues. She was working with her psychiatrist and had recently increased her Cymbalta. Though her psychiatrist felt this was a helpful adjustment, the patient is less sure, although she denies side effects from the titration. When asked about her current mood, she states it is a 5, but is not sure if this is an improvement since admission. She denies episodes of elation, racing thoughts, or other symptoms consistent with bipolar. When asked about her delusions of bugs crawling in her head and the presence of demons, patient states she does not have these sensations at present. She also denies auditory hallucinations. She is hesitant to consider that this is indication of improvement and states "I am hopeful but discouraged." She is unable to elicit factors or reasons that are sources of her feeling discouraged. She denies paranoia at present. When asked how she was coping with stressors at home, patient states she enjoys biking around [place], walking her dogs, [place] and [place], playing her saxophone, and colouring. She states that she enjoys biking and was on the stationary bike yesterday before pain in her knee prevented her from continuing. She states she was active at home, and is distraught that despite this activity and "eating healthier," she has "gained 100lb rapidly in t he last year." Patient also admits that her is coming to visit her this afternoon, and she is nervous about this because "I don't want him to see me down like this, because it'll upset him. He understands that I have mental health issues, but doesn't understand how it gets this bad." Shortly after this, patient asks to return to room to lie down. She is encouraged to let us know if she has any questions or concerns. Physical Exam Psychiatric Well developed, well nourished 43 yo female, appearing older than stated age, with no evidence of acute distress, tightly holding home blanket wrapped around her shoulder. Orientation: alert, oriented x 3 and cooperative Apperance: appropriately dressed Eye Contact: good eye contact Motor Behavior: steady gait and station and no abnormal motor movements Speech: normal rate/rhythm/volume of speech (Predominantly soft tone) Affect: + depressed affect, + anxious affect and + tearful affect Mood: + depressed mood and + anxious mood Thought Process: goal directed thought process and clear/coherent thought process Thought Content: + paranoid (Feeling she is always being watched, presence of cameras around her) and + delusions (Reports believed that demons have put bugs in her head and bloodstream) Suicidal Thoughts: denies suicidal thoughts Homicidal Thoughts: denies homicidal thoughts Hallucinations: + tactile hallucinations (Reports feeling bugs crawling in her bloodstream); no auditory hallucinations and no visual hallucinations Cognition: attention grossly intact and language grossly intact Estimated Intelligence: consistent with education level Insight: + impaired insight Judgement: + impaired judgement Vital Signs (Past 24 Hours) Last Vital Signs Temp 36.7 C 03/05/19 06:48 Pulse 80 03/05/19 06:48 Resp 18 03/05/19 06:48 BP 132/91 03/05/19 06:48 Pulse Ox 93 03/03/19 17:34 Results & Data Laboratory Results Laboratory Results - last 24 hr 03/05/19 06:58 Fasting Glucose 98 Triglycerides 129 Cholesterol 172 LDL Cholesterol, Calc 93 VLDL Cholesterol, Calc 26 HDL Cholesterol 53 Cholesterol/HDL Ratio 3 Current Inpatient Medications Current Inpatient Medications: Current Inpatient Medications Acetaminophen (Tylenol) 650 mg PO Q4H PRN PRN Reason: Headache or Minor Fever Stop: 04/02/19 17:21 Al Hydrox/Mg Hydrox/Simethicone (Maalox) 30 ml PO Q4H PRN PRN Reason: GI Upset Stop: 04/02/19 17:21 Albuterol (Ventolin Hfa) 2 puffs INH QID PRN PRN Reason: Shortness Of Breath Or Wheezing Stop: 04/02/19 17:30 Bismuth Subsalicylate (Kaopectate) 15 ml PO PRN PRN PRN Reason: Loose Stool Stop: 04/02/19 17:21 Celecoxib (Celebrex) 200 mg PO QAM [facility] Stop: 04/03/19 08:59 Last Admin: 03/05/19 09:28 Dose: 200 mg Documented by: Clonazepam (Klonopin) 0.5 mg PO TID [facility] Stop: 04/02/19 20:59 Last Admin: 03/05/19 09:28 Dose: 0.5 mg Documented by: Duloxetine HCl (Cymbalta) 120 mg PO QAM [facility] Stop: 04/03/19 08:59 Last Admin: 03/05/19 09:28 Dose: 120 mg Documented by: Eszopiclone (Lunesta) 2 mg PO [facility] Stop: 04/02/19 20:59 Last Admin: 03/04/19 22:05 Dose: 2 mg Documented by: Gabapentin (Neurontin) 800 mg PO TID [facility] Stop: 04/02/19 20:59 Last Admin: 03/05/19 09:28 Dose: 800 mg Documented by: Haloperidol (Haldol) 2.5 mg PO Q4H PRN PRN Reason: delusions Stop: 04/03/19 17:29 Hydroxyzine HCl (Vistaril) 50 mg PO HSZ PRN PRN Reason: Insomnia Stop: 04/02/19 17:21 Hydroxyzine HCl (Vistaril) 50 mg PO TID [facility] Stop: 04/02/19 20:59 Last Admin: 03/05/19 09:28 Dose: 50 mg Documented by: Lurasidone HCl (Latuda) 80 mg PO QDD [facility] Stop: 04/03/19 16:29 Last Admin: 03/04/19 17:37 Dose: 80 mg Documented by: Magnesium Hydroxide (Milk Of Magnesia) 30 ml PO DAILY PRN PRN Reason: Heartburn Stop: 04/02/19 17:21 Miscellaneous (Remove Nicoderm Patch) 1 ea N/A [facility] Stop: 04/02/19 20:59 Last Admin: 03/04/19 22:10 Dose: 1 ea Documented by: Nicotine (Nicoderm Cq) 14 mg TD [facility] Stop: 04/03/19 08:59 Last Admin: 03/05/19 09:33 Dose: 14 mg Documented by: Nicotine Polacrilex (Nicorette 2mg) 1 piece MT UD PRN PRN Reason: Nicotine Withdrawal Stop: 04/02/19 17:26 Pantoprazole Sodium (Protonix) 40 mg PO QAM [facility] Stop: 04/03/19 08:59 Last Admin: 03/05/19 09:28 Dose: 40 mg Documented by: Prazosin HCl (Prazosin Hcl) 5 mg PO HS [facility] Stop: 04/02/19 20:59 Last Admin: 03/04/19 21:25 Dose: 5 mg Documented by: Promethazine HCl (Phenergan) 25 mg PO TID PRN PRN Reason: Nausea And Vomiting Stop: 04/02/19 17:30 Ranitidine HCl (Zantac) 300 mg PO [facility] Stop: 04/02/19 20:59 Last Admin: 03/04/19 21:26 Dose: 300 mg Documented by: Ropinirole HCl (Requip) 2 mg PO QAM PRN PRN Reason: Restless Leg(S) Stop: 04/02/19 17:30 Ropinirole HCl (Requip) 4 mg PO [facility] Stop: 04/02/19 20:59 Last Admin: 03/04/19 21:25 Dose: 4 mg Documented by: Simethicone (Mylicon) 80 mg PO QID PRN PRN Reason: gas/bloating Stop: 04/02/19 17:30 Sodium Chloride ([place] Nasal) 1 - 2 sprays NA PRN PRN PRN Reason: Nasal Dryness/Congestion Stop: 04/02/19 17:21 Sumatriptan Succinate (Imitrex) 100 mg PO DAILY PRN PRN Reason: Migraine Headache Stop: 04/02/19 17:30 Trazodone HCl (Desyrel) 300 mg PO [facility] Stop: 04/02/19 20:59 Last Admin: 03/04/19 21:23 Dose: 300 mg Documented by: Post Discharge Appointments Primary Care Physician Name Of Family Doctor: [facility] Phone Number: [phone] Psychiatrist Name of Psychiatrist: Sophie Mazariegos @ [place] Psychiatrist's Therapist Name of Therapist: Janes Brar LCSW Therapist's Liner Machine Operator Helper Name of Liner Machine Operator Helper: TAMERA Arango Phone Number for Liner Machine Operator Helper: [phone] Contact Information Discharge Discharge Address: [facility] [place] [address] CPT Code CPT Code 39534 Resident Activity Tracking Resident Involvement: Resident Care Provided Care Provided: Adult Hospital Medicine (1) Depression Depression Type: other depression Qualified Code(s): F32.89 - Other specified depressive episodes
[2019-03-05] MEDS: LURASIDONE HCL 40 MG TAB PO SCH (17:13)
[2019-03-05] MEDS: TRAZODONE HCL 100 MG TAB PO SCH (21:12)
[2019-03-05] MEDS: ESZOPICLONE 2 MG TABLET PO SCH (21:12)
[2019-03-05] MEDS: ROPINIROLE HCL 1 MG TABLET PO SCH (21:13)
[2019-03-05] MEDS: PRAZOSIN HCL 1 MG CAP PO SCH (21:13)
--- NOTE | 2019-03-06 09:01 | Psychiatric Progress Note ---
Date of Service March 06, 2019 Impression / Recommendations Impression Patient reports some improvement in mood today, but continues to verbalize episodes of sensing the devil and demons which continues to cause distress. Patient is receiving benefit from haloperidol as needed. It was reported to provider last evening, the patient's initial dose of haloperidol was ordered as 2.5 mg, but 5 mg tablet was not cut in half prior to patient receiving. Patient did admit that her dose last evening (2.5 mg) was not as effective as the initial dose (5 mg), it is requesting to receive the higher dose as she states it was more effective and lasted for longer duration. We will attempt to strengthen coping strategies, as ideally we would not add another routine medication to patient's pre-existing polypharmacy. We will continue the haloperidol only as needed for the time being. Inpatient psychiatric hospitalization is medically necessary due to her significant mental health history, multiple serious overdoses, disturbances of sensing demons and the devil, and inability to contract for safety outside of the hospital. Given her history and current symptoms, she is at high risk of harm to self if discharged prematurely. (1) PTSD (post-traumatic stress disorder): 03/04 - Admitted to a locked inpatient behavioral health unit, on q15 minute safety checks - Encourage medication initiation/adjustments as indicated - Encourage participation in group and recreational therapies - Gather collateral information from outpatient providers - Suggest family meeting to involve outpatient supports in safety planning - Continue current medication regimen until additional information can be gathered from outpatient providers. - Significant trauma history could certainly correlate with a complicated PTSD, as patient endorses significant flashbacks and nightmares leading to insomnia - Attempt to tease out symptoms of PTSD from patient self-reported diagnosis of dissociative identity disorder, which is not currently endorsed by outpatient providers - Assist patient with development of healthy and effective coping strategies, to manage stressors 03/05 - Significant trauma history could certainly correlate with a complicated PT SD, as patient endorses significant flashbacks and nightmares leading to insomnia - Continue q15 minute safety checks - Maintain current medication regimen without adjustment -already on the maximum FDA approved dose of Cymbalta, and the patient wants to avoid additional medications that increase risk of weight gain. PRN haloperidol was helpful and will continue. - Encourage participation in group and recreational therapies, including coloring and exercise via walking or stationary bike as patient has indicated these are therapeutic to her - Assist patient with development of healthy and effective coping strategies, to manage stressors - Family meeting with scheduled for this afternoon to engage outpatient supports in safety planning 03/06 - Continue current medication regimen - Pt has reported benefit from prn dosing of Haldol, felt 5mg dose was more beneficial and is willing to receive increased dose - Family meeting held with yesterday, who was supportive (2) Depression: 03/04 - History of depression diagnosis per outpatient psychiatrist - endorsing worsening of symptoms. Will treat as depression NOS as further collateral will be necessary to tease out various diagnoses. Differential includes: major depressive disorder with/without psychotic features, mood disorder, psychosis/brief psychotic episode, and certainly other concerns - Continue current medication regimen unchanged, requested records from outpatient prescriber - Phone communication with outpatient prescriber results in hesitation for major medication adjustments, given complex history. Consider adjustment of antidepressive medications to target low mood and stress - Encourage development of healthy and effective coping strategies - Assist patient in processing loss, grief, and other subjects related to recent stressors 03/05 - Outpatient physician office assistant was contacted yesterday to review patient's care and treatment plan. - Will continue current medication regimen unchanged at present - Can consider titration of Cymbalta if warranted - Encourage development of healthy and effective coping strategies and assist patient in processing loss, grief, and other subjects related to recent stressors 03/06 - Continue as above, no change to Cymbalta today (3) Borderline personality disorder: 03/05 -patient's trauma history and symptom pattern most consistent with BPD diagnosis, which is supported by her outpatient clinicians as well. She does not have a primary thought disorder, and current perceptual disturbances appear consistent with dissociation and paranoia characteristic of BPD. -Continue to provide support, consistent boundaries, and encourage use of healthy coping skills. (4) Anxiety: 03/04 - Continue current medication regimen to target anxiety - Assist in development of healthy and effective coping strategies to express and process stressors (5) Insomnia: 03/04 - Continue current sleep aids, outpatient psychiatric prescriber feeling this is most beneficial portion of her medication regimen Inventory Assets Strengths: willingness for treatment, established with outpatient providers, long history with current providers Needs: Assistance coping with recent stressors, development of healthy and effective coping strategies Risk Factors Assessment Male: No : Yes Do You Have Access To A Gun?: No Health Problems: Yes Mental Health Diagnoses: Yes Substance Use Disorders: No Previous Attempt: Yes Previous Attempt; Highly Lethal: Yes Previous Psychiatric Hospitalization: Yes Hopelessness: No Smoker: Yes Protective Factors Assessment Advent Beliefs: Yes : Yes Responsible for Young Children: No 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 Pt was admitted on 03/03/19 17:26 on a 201 voluntary commitment after referral from her outpatient psychiatric prescriber for delusions and worsening depressive symptoms. Information provided by the patient is considered to be reliable. Chief Complaint "That Haldol worked a little bit. I think I may ask for a second, because I'm sensing demons and the devil." Review of Systems Notes Constitutional: reports restless sleep and "bizarre dreams" last evening Cardiovascular: denied Respiratory: denied Gastrointestinal: denied Neurological: denied Psychiatric: denies symptoms other than stated above Total of at least 10 systems reviewed, pertinent positives as above and in HPI. Sleep Information Total Hours of Sleep: 7.5 Sleep Comments: pt NPO during the night. pt on q-15 minute checks Meal Information Percent Meal Consumed - Breakfast: 75 Percent Meal Consumed - Lunch: 100 Percent Meal Consumed - Dinner: 100 Subjective Subjective Patient was seen & assessed and interval progress reviewed with Nursing. Staff reports the patient attended only a few groups yesterday. She did participate in a meeting with her , who continues to be supportive. Patient received as needed Haldol last evening due to reports of sensing demons. Patient was seen today to assess progress since admission. She states that she is somewhat anxious this morning, as she has recently started to since demons and the devil this morning. Patient denies clear auditory or visual hallucinations, denying tactile hallucinations other than "sensing" demons and the devil. Patient does report a "scene of darkness" which she describes as a "overlay" over reality. Patient states that in the scene she at times notices a visual disturbance of "bugs." Patient has difficulty describing that delusion in more detail. Patient does admit to bizarre dreams, and reports some restless sleep. Overall, patient feels that her mood is "a little better." Patient does state that she is planning to request Haldol, but feels that the lower dose received yesterday was not as effective as the 5 mg dose she initially received on day of admission. Patient continues to deny suicidal thoughts, but is unable to contract for safety outside of the hospital setting. She denies any other specific needs or concerns today. Physical Exam Psychiatric Orientation: alert, oriented x 3 and cooperative Apperance: appropriately dressed and appropriately groomed Obese female with short hair, wearing tie dye cap, t-shirt, and sweat pants. Seated in no acute distress. Eye Contact: good eye contact Motor Behavior: steady gait and station, no abnormal motor movements and + psychomotor retardation Speech: normal rate/rhythm/volume of speech (slow, soft speech) Affect: + depressed affect Mood: + depressed mood reports "a little better today" Thought Process: goal directed thought process and clear/coherent thought process Disturbances of "sensing demons and the devil" Suicidal Thoughts: denies suicidal thoughts Homicidal Thoughts: denies homicidal thoughts Hallucinations: no auditory hallucinations and no visual hallucinations vague description of visual disturbances "a dark overlay" Cognition: recent memory grossly intact, attention grossly intact and language grossly intact Estimated Intelligence: consistent with education level Insight: + impaired insight Judgement: + impaired judgement Vital Signs (Past 24 Hours) Last Vital Signs Temp 36.6 C 03/06/19 06:00 Pulse 73 03/06/19 06:00 Resp 18 03/06/19 06:00 BP 133/95 03/06/19 06:00 Pulse Ox 93 03/03/19 17:34 Results & Data Current Inpatient Medications Current Inpatient Medications: Current Inpatient Medications Acetaminophen (Tylenol) 650 mg PO Q4H PRN PRN Reason: Headache or Minor Fever Stop: 04/02/19 17:21 Al Hydrox/Mg Hydrox/Simethicone (Maalox) 30 ml PO Q4H PRN PRN Reason: GI Upset Stop: 04/02/19 17:21 Albuterol (Ventolin Hfa) 2 puffs INH QID PRN PRN Reason: Shortness Of Breath Or Wheezing Stop: 04/02/19 17:30 Bismuth Subsalicylate (Kaopectate) 15 ml PO PRN PRN PRN Reason: Loose Stool Stop: 04/02/19 17:21 Celecoxib (Celebrex) 200 mg PO QAM [facility] Stop: 04/03/19 08:59 Last Admin: 03/05/19 09:28 Dose: 200 mg Documented by: Clonazepam (Klonopin) 0.5 mg PO TID [facility] Stop: 04/02/19 20:59 Last Admin: 03/05/19 21:12 Dose: 0.5 mg Documented by: Duloxetine HCl (Cymbalta) 120 mg PO QAM [facility] Stop: 04/03/19 08:59 Last Admin: 03/05/19 09:28 Dose: 120 mg Documented by: Eszopiclone (Lunesta) 2 mg PO HS [facility] Stop: 04/02/19 20:59 Last Admin: 03/05/19 21:12 Dose: 2 mg Documented by: Gabapentin (Neurontin) 800 mg PO TID [facility] Stop: 04/02/19 20:59 Last Admin: 03/05/19 21:12 Dose: 800 mg Documented by: Haloperidol (Haldol) 5 mg PO Q6H PRN PRN Reason: delusions Stop: 04/03/19 17:26 Hydroxyzine HCl (Vistaril) 50 mg PO HSZ PRN PRN Reason: Insomnia Stop: 04/02/19 17:21 Hydroxyzine HCl (Vistaril) 50 mg PO TID [facility] Stop: 04/02/19 20:59 Last Admin: 03/05/19 21:12 Dose: 50 mg Documented by: Lurasidone HCl (Latuda) 80 mg PO QDD [facility] Stop: 04/03/19 16:29 Last Admin: 03/05/19 17:13 Dose: 80 mg Documented by: Magnesium Hydroxide (Milk Of Magnesia) 30 ml PO DAILY PRN PRN Reason: Heartburn Stop: 04/02/19 17:21 Miscellaneous (Remove Nicoderm Patch) 1 ea N/A [facility] Stop: 04/02/19 20:59 Last Admin: 03/05/19 21:21 Dose: 1 ea Documented by: [facility]otine ([facility]oderm Cq) [facility] Stop: 04/03/19 08:59 Last Admin: 03/05/19 09:33 Dose: 14 mg Documented by: Nicotine Polacrilex (Nicorette 2mg) 1 piece MT UD PRN PRN Reason: Nicotine Withdrawal Stop: 04/02/19 17:26 Pantoprazole Sodium (Protonix) 40 mg [facility] Stop: 04/03/19 08:59 Last Admin: 03/05/19 09:28 Dose: 40 mg Documented by: Prazosin HCl (Prazosin Hcl) 5 mg PO [facility] Stop: 04/02/19 20:59 Last Admin: 03/05/19 21:13 Dose: 5 mg Documented by: Promethazine HCl (Phenergan) 25 mg PO TID PRN PRN Reason: Nausea And Vomiting Stop: 04/02/19 17:30 Ranitidine HCl (Zantac) 300 mg PO [facility] Stop: 04/02/19 20:59 Last Admin: 03/05/19 21:13 Dose: 300 mg Documented by: Ropinirole HCl (Requip) 4 mg PO [facility] Stop: 04/02/19 20:59 Last Admin: 03/05/19 21:13 Dose: 4 mg Documented by: Ropinirole HCl (Requip) 2 mg PO DAILY@1230 [facility] Stop: 04/05/19 12:29 Simethicone (Mylicon) 80 mg PO QID PRN PRN Reason: gas/bloating Stop: 04/02/19 17:30 Sodium Chloride (Park Nasal) 1 - 2 sprays NA PRN PRN PRN Reason: Nasal Dryness/Congestion Stop: 04/02/19 17:21 Sumatriptan Succinate (Imitrex) 100 mg PO DAILY PRN PRN Reason: Migraine Headache Stop: 04/02/19 17:30 Trazodone HCl (Desyrel) 300 mg PO [facility] Stop: 04/02/19 20:59 Last Admin: 03/05/19 21:12 Dose: 300 mg Documented by: Post Discharge Appointments Primary Care Physician Name Of Family Doctor: [facility] Phone Number: [phone] Psychiatrist Name of Psychiatrist: Sophie Mazariegos @ [place] [facility]'s Therapist Name of Therapist: Janes Brar LCSW Therapist's Drug Discovery Informatics Specialist Name of Drug Discovery Informatics Specialist: TAMERA Arango Phone Number for Drug Discovery Informatics Specialist: [phone] Contact Information Discharge Discharge Address: [place] [address] CPT Code CPT Code 21977 (1) Depression Depression Type: other depression Qualified Code(s): F32.89 - Other specified depressive episodes
[2019-03-06] MEDS: clonazePAM 0.5 MG TAB PO SCH ×3 (09:13→21:39)
[2019-03-06] MEDS: NICOTINE 14 MG/24 HR PATCH TD SCH (09:13)
[2019-03-06] MEDS: CeleBREX 200 MG CAP PO SCH (09:13)
[2019-03-06] MEDS: DULOXETINE HCL 60 MG CAP PO SCH (09:13)
[2019-03-06] MEDS: GABAPENTIN 800 MG TAB PO SCH ×3 (09:13→21:43)
[2019-03-06] MEDS: PANTOprazole 40 MG TAB PO SCH (09:14)
[2019-03-06] MEDS: HALOPERIDOL 5 MG TAB PO PRN ×2 (09:19→17:19)
[2019-03-06] MEDS: ROPINIROLE HCL 1 MG TABLET PO SCH ×2 (14:26→21:41)
[2019-03-06] MEDS: LURASIDONE HCL 40 MG TAB PO SCH (17:19)
[2019-03-06] MEDS: ESZOPICLONE 2 MG TABLET PO SCH (21:40)
[2019-03-06] MEDS: PRAZOSIN HCL 1 MG CAP PO SCH (21:41)
[2019-03-06] MEDS: TRAZODONE HCL 100 MG TAB PO SCH (21:43)
[2019-03-07] MEDS: clonazePAM 0.5 MG TAB PO SCH (08:46)
[2019-03-07] MEDS: DULOXETINE HCL 60 MG CAP PO SCH (08:46)
[2019-03-07] MEDS: NICOTINE 14 MG/24 HR PATCH TD SCH (08:46)
[2019-03-07] MEDS: GABAPENTIN 800 MG TAB PO SCH (08:46)
[2019-03-07] MEDS: CeleBREX 200 MG CAP PO SCH (08:46)
[2019-03-07] MEDS: PANTOprazole 40 MG TAB PO SCH (08:47)
--- NOTE | 2019-03-07 12:12 | Discharge Summary ---
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 (Reason: Migraine Headache) RF: 0 celecoxib 200 mg capsule 200 mg PO QAM RF: 0 prazosin 5 mg capsule 5 mg PO HS RF: 0 ropinirole 2 mg tablet 2 mg PO QAM PRN (Reason: Restless Leg(S)) RF: 0 ropinirole 4 mg tablet 4 mg PO HS RF: 0 duloxetine 60 mg capsule,delayed release(DR/EC) 120 mg PO QAM RF: 0 melatonin 10 mg Tablet 10 - 20 mg PO HS RF: 0 Latuda 80 mg tablet 80 mg PO HS RF: 0 ranitidine HCl 300 mg tablet 300 mg PO HS RF: 0 clonazepam [Klonopin] 0.5 mg tablet 0.5 mg PO TID RF: 0 hydroxyzine HCl 50 mg tablet 50 mg PO TID RF: 0 eszopiclone [Lunesta] 2 mg tablet 2 mg PO HS RF: 0 trazodone 150 mg tablet 300 mg PO HS RF: 0 promethazine 25 mg tablet 25 mg PO TID PRN (Reason: Nausea And Vomiting) RF: 0 simethicone 80 mg Tablet,Chewable 80 mg PO QID PRN (Reason: gas/bloating) RF: 0 Stand-Alone Forms: [facility] Discharge Orders: Discharge Order (Routine); Ordered 03/07/19 Ordered By: Dave Ricks Admission Data Admit Date/Time: 03/03/19 17:26 Attending Provider: Marleny Wei Admit Provider: Marleny Wei Primary Care Provider: Anthony Light Service: Psychiatry Other Interventions: PSY Interdisciplinary Discharge Planning Last Done: 03/07/19 10:43 Pending Studies at Discharge: No
[2019-03-07] MEDS: ROPINIROLE HCL 1 MG TABLET PO SCH (12:50)
[2019-03-07] MEDS ORDERED: HALOPERIDOL 5 MG TAB PO SCH (21:00)
== END 2019-03-07 13:05 | disposition home or self-care (01) | DRG 882 ==
LOC: ED 12:25 → 3S 17:26